=== PATIENT | female | born 1940 | race Caucasian/White ===

== ENCOUNTER 2023-04-30 16:26 | Emergency (ER) | payer MEDICARE, SELFPAY ==
[2023-04-30 16:41] VITALS: BP 144/68; PULSE 56; RESP 16; TEMP 36.9; O2SAT 100; BMI 20.8
--- NOTE | 2023-04-30 16:41 | XR_ITS ---
The [address] [address] Patient Name: ALANNAH SERVIN MRN: [id number] date: 1940 Sex: F Assigned Patient Location: ER Current Patient Location: ER Accession/Order Number: [id number] Exam Date: 04/30/2023 17:00 Report Date: 04/30/2023 18:10 At the request of: JAD TRAN Procedure: XR knee LT 2V IMAGES REVIEWED: XR knee LT 2V COMPARISON: None available. CLINICAL INDICATION: pain FINDINGS/IMPRESSION: 1. Advanced tricompartmental osteoarthritis of the left knee. 2. No radiographic evidence of acute osseous abnormality. No significant joint effusion. 3. Osteopenia. Electronically authenticated by: SUSANA TEJADA Date: 04/30/2023 18:10
--- NOTE | 2023-04-30 16:52 | US_ITS ---
The [place] [id number] Patient Name: ALANNAH SERVIN MRN: [id number] date: 1940 Sex: F Assigned Patient Location: ER Current Patient Location: ER Accession/Order Number: [id number] Exam Date: 04/30/2023 17:17 Report Date: 04/30/2023 18:14 At the request of: MARIELA WRIGHT Procedure: US venous doppler LE LT EXAM: US venous doppler LE LT HISTORY: rule out DVT COMPARISON: None. TECHNIQUE: Evaluation of the deep veins of the left lower extremity was performed utilizing B-mode, color flow and spectral analysis. FINDINGS: The visualized vessels comprising the deep venous systems from the common femoral vein through the calf veins demonstrate appropriate compressibility, spontaneous color Doppler flow, and augmentation of flow on spectral Doppler with distal compression. Additional findings: None. IMPRESSION: No sonographic evidence of deep venous thrombosis of the left lower extremity. Electronically authenticated by: AYESHA MURDOCK Date: 04/30/2023 18:14
--- NOTE | 2023-04-30 16:54 | ED_ITS ---
HPI - General Adult General Chief complaint: Altered Mental Status Stated complaint: CONFUSION Time Seen by Provider: 04/30/23 16:31 Source: family Mode of arrival: Wheelchair Limitations: altered mental status History of Present Illness HPI narrative: patient is a 82-year-old female who is presenting to the hospital with chief complaint of dehydration, agitation, leg pain. Patient has had a recent left hip surgery. Patient currently coming from nursing facility at the [facility]. Patient complaining of some mild left calf pain. Patient has been complaining of knee pain. Patient had a unwitnessed fall 1.5 weeks ago. Patient currently has no headache or neck pain. Patient is on Lovenox. Patient has no chest pain or shortness of breath. No bowel pain, nausea vomiting. Patient looks well, but there is been concern for nursing staff and family about agitation, dehydration, confusion and probable dehydration. Related Data Home Medications Medication Instructions Recorded Confirmed donepezil 10 mg tablet 10 mg PO DAILY 04/30/23 04/30/23 enoxaparin 40 mg/0.4 mL 40 mg subcut Q24H 04/30/23 04/30/23 subcutaneous syringe levothyroxine 150 mcg tablet 150 mcg PO DAILY 04/30/23 04/30/23 wruesd-nbaozkik-jrvmypn 1 cap PO DAILY 04/30/23 04/30/23 12,000-38,000-60,000 unit capsule,delayed rel (Creon) metoprolol succinate 50 mg 50 mg PO DAILY 04/30/23 04/30/23 tablet,extended release 24 hr oxybutynin chloride 10 mg 10 mg PO DAILY 04/30/23 04/30/23 tablet,extended release 24 hr paroxetine HCl 10 mg tablet 10 mg PO DAILY 04/30/23 04/30/23 Allergies Allergy/AdvReac Type Severity Reaction Status Date / Time Sulfa (Sulfonamide Allergy Severe Hives Verified 04/30/23 16:38 Antibiotics) metoclopramide [From Reglan] AdvReac Severe termors Verified 04/30/23 16:38 Review of Systems ROS Narrative All systems are negative except as noted/marked. All systems reviewed and otherwise negative. PFSH PFS Social History Smoking status: Never smoker Exam Narrative Exam Narrative: Nurses note and vital signs reviewed and patient is not hypoxic. General: The patient appears well and in no apparent distress. Patient is resting comfortably on cart. Patient is not toxic, lethargic, or listless Skin: Warm, dry, no pallor noted. There is no rash noted. No petechiae, purpura. Head: Normocephalic, atraumatic Eye: Normal conjunctiva, no drainage, EOMI. PERRL Ears, Nose, Mouth, and Throat: oral mucosa is slightly dry lips, tongue is moist,. Nares patent. Mouth without vesicles. poor dentition, chronic, no acute intraoral pathology or infection. Cardiovascular: Regular Rate and Rhythm, no murmur, gallop, rub Respiratory: Patient is in no distress, no accessory muscle use, lungs are clear to auscultation, no wheezing, rales or rhonchi Back: non-tender, no CVA tenderness bilaterally to percussion. No CT LS midline pain GI: soft, no tenderness to palpation, no masses appreciated. No rebound, guarding, or rigidity noted. No flank pain bilateral, No distention Musculoskeletal: Patient has full range of motion of all of the extremities, no motor, sensory, or focal neurological deficits. patient states that she's having pain to the left calf and left posterior knee, but during palpation, she has no pain to bilateral posterior calves, popliteal fossa, or posterior thighs. Neurological: A&O x2, Confused to time, this is normal baseline, normal speech Psychiatric: Cooperative Constitutional Vital Signs - 24 hr 04/30/23 16:41 Temperature 98.4 F Pulse Rate [Monitor] 56 L Respiratory Rate 16 Blood Pressure [Right Arm] 144/68 H Pulse Oximetry 100 Course Vital Signs Vital signs: Vital Signs Temperature 98.4 F 04/30/23 16:41 Pulse Rate 56 L 04/30/23 16:41 Respiratory Rate 16 04/30/23 16:41 Blood Pressure 144/68 H 04/30/23 16:41 Pulse Oximetry 100 04/30/23 16:41 Temperature 98.4 F 04/30/23 16:41 Pulse Rate 56 L 04/30/23 16:41 Respiratory Rate 16 04/30/23 16:41 Blood Pressure 144/68 H 04/30/23 16:41 Pulse Oximetry 100 04/30/23 16:41 Medical Decision Making MDM Narrative Medical decision making narrative: Patient's calcium level is slightly low. Patient has been given 2 L of IV fluuid to help with hydration. Patient has no evidence of infection. No other significant LOC slight abnormality, patient's sodium and chloride are slightly low. Patient ultrasound shows no deep vein thrombosis. Patient's multiple x-rays show no acute fracture, chest x-ray shows no obvious signs of pneumonia. Patient will be sent back to nursing facility. Patient's daughter has been at bedside, Shira Pedro. She agrees with the 2 L of IV fluid and discharge and no indication for admission at this time. Lab Data Lab results reviewed: Yes I reviewed the patient's lab results Lab results narrative: Patient has chronic anemia. Patient's sodium and chloride and calcium was slightly low. Patient received 2 L of IV fluid. Labs: Lab Results 04/30/23 04/30/23 Range/Units 16:55 17:55 WBC 4.4 (4.0-11.0) 10^3/uL RBC 3.03 L (4.20-5.40) 10^6/uL Hgb 9.6 L (12.0-16.0) g/dL Hct 30.3 L (36.0-48.0) % MCV 100.0 H (81.0-99.0) fL MCH 31.7 (26.7-34.0) pg MCHC 31.7 (29.9-35.2) g/dL RDW 13.6 (11.0-15.0) % Plt Count 337 (150-450) 10^3/uL MPV 10.0 (9.5-13.5) fL Neut % (Auto) 56.0 (43.0-75.0) % Lymph % (Auto) 31.3 (20.5-60.0) % [place] % (Auto) 10.4 (1.7-12.0) % Eos % (Auto) 1.6 (0.9-7.0) % Baso % (Auto) 0.2 (0.2-2.0) % Neut # (Auto) 2.5 (1.4-6.5) 10^3/uL Lymph # (Auto) 1.4 (1.2-3.8) 10^3/uL [place] # (Auto) 0.5 (0.3-0.8) 10^3/uL Eos # (Auto) 0.1 (0.0-0.7) 10^3/uL Baso # (Auto) 0.0 (0.0-0.1) 10^3/uL Abs Immat Gran (auto) 0.02 (0.00-0.03) 10^3/uL Imm/Tot Granulo (auto) 0.5 (0.0-0.5) % Sodium 133 L (136-145) mmol/L Potassium 3.8 (3.5-5.1) mmol/L Chloride 96 L (98-107) mmol/L Carbon Dioxide 26.2 (21.0-32.0) mmol/L Anion Gap 14.6 BUN 16.0 (7.0-18.0) mg/dL Creatinine 0.76 (0.55-1.02) mg/dL Est GFR ( Amer) >60 (>=60) Est GFR (Non-Af Amer) >60 (>=60) BUN/Creatinine Ratio 21.1 Glucose 92 (74-106) mg/dL Calcium 8.2 L (8.5-10.1) mg/dL Magnesium 2.0 (1.8-2.4) mg/dL Total Bilirubin 0.2 (0.2-1.0) mg/dL AST 21 (15-37) U/L ALT 15 (14-59) U/L Alkaline Phosphatase 112 (46-116) U/L Total Creatine Kinase 41 (26-192) U/L Total Protein 7.0 (6.4-8.2) g/dL Albumin 3.2 L (3.4-5.0) g/dL Globulin 3.8 g/dL Albumin/Globulin Ratio 0.8 TSH 1.455 (0.358-3.740) uIU/mL Urine Color Lt. yellow (YELLOW) Urine Clarity Slightly cloudy A (CLEAR) Urine pH 7.0 (5.0-9.0) Ur Specific [place] <=1.005 A (1.005-1.025) Urine Protein Negative (NEG/TRACE) mg/dL Urine Glucose (UA) Negative (NEGATIVE) mg/dL Urine Ketones Negative (NEGATIVE) mg/dL Urine Occult Blood Negative (NEGATIVE) Urine Nitrite Negative (NEGATIVE) Urine Bilirubin Negative (NEGATIVE) Urine Urobilinogen 0.2 (0.2-1.0) EU/dL Ur Leukocyte Esterase Small A (NEGATIVE) Urine RBC None seen (0-2) #/HPF Urine WBC 2-5 A (NONE SEEN) #/HPF Ur Squamous Epith Cells Few A (NONE/RARE) #/LPF Urine Crystals None seen (None Seen) #/HPF Urine Bacteria None seen (NONE SEEN) #/HPF Urine Casts None seen (NONE SEEN) #/LPF Urine Mucus None seen (NONE SEEN) Ur Culture Indicated? Already ordered Discharge Plan Discharge Chief Complaint: Altered Mental Status Clinical Impression: Pain of left calf, Confusion, Agitation, Dehydration, mild, Hypocalcemia Patient Disposition: Home, Self-Care Condition: Fair Prescriptions / Home Meds: No Action donepezil 10 mg tablet 10 mg PO DAILY enoxaparin 40 mg/0.4 mL syringe 40 mg subcut Q24H levothyroxine 150 mcg tablet 150 mcg PO DAILY Creon 12,000-38,000 -60,000 unit capsule,delayed release(DR/EC) 1 cap PO DAILY metoprolol succinate 50 mg tablet extended release 24 hr 50 mg PO DAILY oxybutynin chloride 10 mg tablet extended release 24hr 10 mg PO DAILY paroxetine HCl 10 mg tablet 10 mg PO DAILY Instructions: Dehydration (ED), Leg Pain (ED) Additional Instructions: Increase fluids, continue multivitamins or calcium supplements. Stand Alone Forms: Portal Instructions Referrals: LEAH JAIN [Primary Care Provider] - 1 week
--- NOTE | 2023-04-30 17:00 | XR_ITS ---
The [address] [address] Patient Name: ALANNAH SERVIN MRN: [id number] date: 1940 Sex: F Assigned Patient Location: ER Current Patient Location: ER Accession/Order Number: [id number] Exam Date: 04/30/2023 17:00 Report Date: 04/30/2023 18:15 At the request of: JAD TRAN Procedure: XR femur RT 2V IMAGES REVIEWED: XR femur RT 2V COMPARISON: 06/08/2022. CLINICAL INDICATION: pain FINDINGS/IMPRESSION: No radiographic evidence of acute osseous abnormality of the right femur. Chronic right distal femoral fracture transfixed by intact appearing hardware and demonstrating interval healing compared to the most recent prior from 06/08/2022. Appears completely healed on the frontal view, however on the lateral view the fracture healing is questionably slightly incomplete with questionable persistent small curvilinear lucency and slightly angulated cortical step-off. Patient is severely osteopenic. Right hip arthroplasty without evidence of complication. 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 Advanced tricompartmental degenerative changes of the right knee again seen. No significant right suprapatellar effusion. Electronically authenticated by: SUSANA TEJADA Date: 04/30/2023 18:15
[2023-04-30] MEDS: 0.9 % SODIUM CHLORIDE 1,000 ML 1000 ML IV ×2 (17:02→19:50)
--- NOTE | 2023-04-30 17:07 | XR_ITS ---
The [address] [address] Patient Name: ALANNAH SERVIN MRN: [id number] date: 1940 Sex: F Assigned Patient Location: ER Current Patient Location: ER Accession/Order Number: [id number] Exam Date: 04/30/2023 17:00 Report Date: 04/30/2023 18:12 At the request of: JAD TRAN Procedure: XR chest 1V EXAM: XR chest 1V HISTORY: cough COMPARISON: None. TECHNIQUE: Chest X-ray AP, 1 view FINDINGS: Support devices: None. Lungs/pleura: No consolidation, effusion, or pneumothorax. Heart and mediastinum: Normal contours. Bones: No acute abnormality identified. Impression: No radiographic evidence of acute cardiopulmonary process. Electronically authenticated by: AYESHA MURDOCK Date: 04/30/2023 18:12
[2023-04-30 17:08] VITALS: PULSE 60
[2023-04-30 17:11] LABS: Basophils Percent Auto 0.2 % (0.2-2.0); Eosinophils Absolute Auto 0.1 10^3/uL (0.0-0.7); Eosinophils Percent Auto 1.6 % (0.9-7.0); Hematocrit 30.3 % (36.0-48.0); Hemoglobin 9.6 g/dL (12.0-16.0); Immature Granulocytes Abs Auto 0.02 10^3/uL (0.00-0.03); Immature Granulocytes Pct Auto 0.5 % (0.0-0.5); Lymphocytes Absolute Auto 1.4 10^3/uL (1.2-3.8); Lymphocytes Percent Auto 31.3 % (20.5-60.0); Mean Corpuscular HGB Conc 31.7 g/dL (29.9-35.2); Mean Corpuscular Hemoglobin 31.7 pg (26.7-34.0); Monocytes Absolute Auto 0.5 10^3/uL (0.3-0.8); Monocytes Percent Auto 10.4 % (1.7-12.0); Neutrophils Absolute Auto 2.5 10^3/uL (1.4-6.5); Platelet Count 337 10^3/uL (150-450); Red Blood Count 3.03 10^6/uL (4.20-5.40); Red Cell Distribution Width 13.6 % (11.0-15.0); White Blood Count 4.4 10^3/uL (4.0-11.0)
[2023-04-30 17:28] LABS: Creatine Kinase 41 U/L (26-192)
[2023-04-30 17:30] LABS: Alanine Aminotransferase 15 U/L (14-59); Albumin Globulin Ratio 0.8; Albumin Level 3.2 g/dL (3.4-5.0); Alkaline Phosphatase 112 U/L (46-116); Anion Gap 14.6; Aspartate Amino Transferase 21 U/L (15-37); BUN Creatinine Ratio 21.1; Bilirubin Total 0.2 mg/dL (0.2-1.0); Calcium 8.2 mg/dL (8.5-10.1); Carbon Dioxide 26.2 mmol/L (21.0-32.0); Chloride 96 mmol/L (98-107); Estimated GFR (African America >60 (>=60); Estimated GFR (Non-African Ame >60 (>=60); Globulin 3.8 g/dL; Glucose 92 mg/dL (74-106); Potassium 3.8 mmol/L (3.5-5.1); Sodium 133 mmol/L (136-145)
[2023-04-30 17:38] LABS: Thyroid Stimulating Hormone 1.455 uIU/mL (0.358-3.740)
[2023-04-30 18:04] LABS: Bilirubin Urine NEGATIVE (NEGATIVE); Blood Urine NEGATIVE (NEGATIVE); Color Urine LT. YELLOW (YELLOW); Glucose Urine UA NEGATIVE (NEGATIVE); Ketones Urine NEGATIVE (NEGATIVE); Leukocyte Esterase Urine SMALL (NEGATIVE); Nitrite Urine NEGATIVE (NEGATIVE); Protein Urine NEGATIVE (NEG/TRACE); Specific Gravity Urine <=1.005 (1.005-1.025); Urobilinogen Urine 0.2 EU/dL (0.2-1.0)
[2023-04-30 18:09] LABS: Clarity Urine SLIGHTLY CLOUDY (CLEAR)
[2023-04-30 18:10] LABS: Bacteria Urine NONE SEEN #/HPF (NONE SEEN); Crystals Seen? None Seen #/HPF (None Seen); Mucus Urine NONE SEEN (NONE SEEN); RBC Urine NONE SEEN #/HPF (0-2); Squamous Epithelial Cell Urine FEW #/LPF (NONE/RARE)
[2023-04-30 18:11] LABS: Cast Seen? NONE SEEN #/LPF (NONE SEEN); Urine Culture Indicated ALREADY ORDERED
[2023-04-30 21:02] VITALS: BP 155/68; PULSE 64; RESP 18; O2SAT 100
== END 2023-04-30 20:45 | disposition home or self-care (01) ==
PROVIDERS: Physician Assistant; Emergency Provider Emergency Medicine; PCP Family Medicine
DX: M79.662 Pain in left lower leg (principal); R45.1 Restlessness and agitation; R41.0 Disorientation, unspecified; E86.0 Dehydration; E87.6 Hypokalemia; Z79.899 Other long term (current) drug therapy
CPT/HCPCS: 36415; 71045; 73552; 73560; 80053; 81001; 82550; 83735; 84443; 85025; 87086; 93971; 99285

== ENCOUNTER 2023-07-23 18:45 | Emergency (ER) | payer MEDICARE, SELFPAY ==
[2023-07-23] VITALS (26 sets, daily range): BP systolic 138–165; BP diastolic 78–98; PULSE 43–78; RESP 10–30; TEMP 36.7; O2SAT 66–99; BMI 17.4
--- NOTE | 2023-07-23 18:55 | ECG_ITS ---
The 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
--- NOTE | 2023-07-23 19:00 | XR_ITS ---
The [address] [address] Patient Name: ALANNAH SERVIN MRN: [id number] date: 1940 Sex: F Assigned Patient Location: ER Current Patient Location: ER Accession/Order Number: [id number] Exam Date: 07/23/2023 19:55 Report Date: 07/23/2023 20:48 At the request of: LAURA HARRIS Procedure: XR chest 1V EXAM: XR chest 1V HISTORY: Weakness COMPARISON: 04/30/2023 TECHNIQUE: AP portable study FINDINGS: The lung hendrix are well-expanded and clear. The heart is within normal limits in size. Atherosclerotic aorta without visible aneurysm. Degenerative changes are noted at both shoulders. Bony structures are otherwise unremarkable. XR/XR chest 1V IMPRESSION: No evidence for acute cardiopulmonary disease. Electronically authenticated by: Mani QUIROS Date: 07/23/2023 20:48
--- NOTE | 2023-07-23 19:00 | XR_ITS ---
The [address] [address] Patient Name: ALANNAH SERVIN MRN: [id number] date: 1940 Sex: F Assigned Patient Location: ER Current Patient Location: ER Accession/Order Number: [id number] Exam Date: 07/23/2023 19:55 Report Date: 07/23/2023 20:52 At the request of: LAURA HARRIS Procedure: XR knee LT 4V EXAM: XR knee LT 4V REASON FOR EXAM: Female, 82 years, Left knee pain. TECHNIQUE: 4 views of the knee are performed. COMPARISON: 04/30/2023 FINDINGS: The bones are demineralized. No acute fracture is seen. There is severe narrowing of the lateral femorotibial compartment. There is moderate joint space narrowing within the medial femorotibial compartment. There is severe joint space narrowing at the patellofemoral joint. There is no joint effusion. The soft tissues are unremarkable. XR/XR knee LT 4V IMPRESSION: Osteopenia with severe degenerative changes. No acute fracture is seen. Electronically authenticated by: ROSANGELA PEOPLES Date: 07/23/2023 20:52
--- NOTE | 2023-07-23 19:01 | CT_ITS ---
The [address] [address] Patient Name: ALANNAH SERVIN MRN: [id number] date: 1940 Sex: F Assigned Patient Location: ER Current Patient Location: Accession/Order Number: [id number] Exam Date: 07/23/2023 19:55 Report Date: 07/23/2023 20:54 At the request of: LAURA HARRIS Procedure: CT head/brain wo con EXAM: CT head/brain wo con REASON FOR EXAM: Female, 82 years, Weakness. TECHNIQUE: Computed tomography of the head is performed in the axial projection from the base of the skull to the vertex. Sagittal and coronal reconstructed images are performed. Dose reduction techniques were achieved by using automated exposure control and/or adjustment of mA and/or KVP according to patient size and/or use of iterative reconstruction technique. COMPARISON: 03/28/2023. FINDINGS: Atherosclerotic vascular calcifications are seen. Normal calvarium. There is prominence to the ventricles and sulci consistent with chronic cerebral volume loss. There is diffuse low attenuation within the periventricular white matter, consistent with chronic small vessel ischemic changes. Normal basal ganglia. Normal brainstem. There is moderate cerebellar atrophy. There is no evidence for acute ischemia. There is no evidence for acute hemorrhage. The visualized paranasal sinuses are clear. CT/CT head/brain wo con IMPRESSION: Chronic involutional changes. No acute intracranial abnormality. Electronically authenticated by: ROSANGELA PEPOLES Date: 07/23/2023 20:54
--- NOTE | 2023-07-23 19:10 | ED_ITS ---
HPI - Weakness General Chief complaint: Weakness Stated complaint: PROGRESSIVE WEAKNESS 1500, INCONTINENCE Time Seen by Provider: 07/23/23 18:50 Source: family Mode of arrival: Wheelchair Limitations: no limitations History of Present Illness HPI Narrative: patient is an 82-year-old female with dementia who presents to the emergency department with her daughter for the evaluation of worsening weakness, occasional spastic movements and inability to ambulate. Daughter is the primary historian, she is a physician ophthalmic surgical assistant in this emergency department. She states that the patient is currently residing in a long-term care facility, she has been unable to ambulate and had progressive weakness. She was recently placed on Requip for the spastic movements. she recently completed a course of Keflex for suspected urinary tract infection. She has not had any fevers, upper respiratory symptoms, vomiting or diarrhea. She complains of left knee pain. She has not had any injuries. daughter states that she had similar spastic movements and stiffening of the joints several months ago which were thought to be due to her Reglan prescription and when the medication was discontinued she was found to have improvement. She has had worsening of the twitching movements and is beginning to have stiffening of the joints. Related Data Home Medications Medication Instructions Recorded Confirmed donepezil 10 mg tablet 10 mg PO DAILY 04/30/23 07/23/23 levothyroxine 150 mcg tablet 150 mcg PO DAILY 04/30/23 07/23/23 [id number] 1 cap PO DAILY 04/30/23 07/23/23 12,000-38,000-60,000 unit capsule,delayed rel (Creon) metoprolol succinate 50 mg 50 mg PO DAILY 04/30/23 07/23/23 tablet,extended release 24 hr oxybutynin chloride 10 mg 10 mg PO DAILY 04/30/23 07/23/23 tablet,extended release 24 hr paroxetine HCl 10 mg tablet 10 mg PO DAILY 04/30/23 07/23/23 ferrous sulfate 325 mg (65 mg 325 mg PO DAILY 07/23/23 07/23/23 iron) tablet,delayed release magnesium oxide 500 mg tablet 500 mg PO DAILY 07/23/23 07/23/23 paroxetine HCl 20 mg tablet 20 mg PO DAILY 07/23/23 07/23/23 ropinirole 0.5 mg tablet 0.5 mg PO DAILY 07/23/23 07/23/23 Allergies Allergy/AdvReac Type Severity Reaction Status Date / Time Sulfa (Sulfonamide Allergy Severe Hives Verified 04/30/23 16:38 Antibiotics) metoclopramide [From Reglan] AdvReac Severe termors Verified 04/30/23 16:38 Review of Systems ROS Constitutional Denies: fever or chills PFSH PFSH Social History Smoking status: Never smoker Exam Constitutional Vital Signs, click to edit/add: Last Vital Signs Temp 98.1 F 07/23/23 18:52 Pulse 53 L 07/23/23 20:50 Resp 17 07/23/23 20:50 BP 138/86 07/23/23 21:02 Pulse Ox 97 07/23/23 20:50 O2 Del Method Room Air 07/23/23 18:52 Course Vital Signs Vital signs: Vital Signs Blood Pressure 165/98 H 07/23/23 17:28 Temperature 98.1 F 07/23/23 18:52 Pulse Rate 53 L 07/23/23 20:50 Respiratory Rate 17 07/23/23 20:50 Blood Pressure 138/86 07/23/23 21:02 Pulse Oximetry 97 07/23/23 20:50 Oxygen Delivery Method Room Air 07/23/23 18:52 MDM - Weakness MDM Narrative Medical decision making narrative: patient treated with IV fluids, she declined medication for pain in the Emergency Room and rested comfortably although she was noted to have intermittent twitching and stiffening of her extremities. Lab studies are grossly unremarkable, urine specimen with 2-5 WBC, small leukocyte and no bacteria. EKG with no acute changes, CT of the brain, chest x-ray unremarkable and x-rays of the left knee showed degenerative joint changes with no acute process. as the patient is unable to ambulate, becoming progressively weaker with worsening neurologic symptoms we requested admission, hospitalist, . sister, stated that the patient should be transferred to a facility with neurology. 2109: Patient's daughter states that she was at [facility] when she had a suspected adverse reaction to Reglan and was evaluated by Dr. Olea for neurology at that time. She is comfortable transfer back to [facility] for further evaluation and treatment. Patient accepted by hospitalist @ 2125. Stable for transfer. Medical Records Attestation: I reviewed the patient's medical records. Lab Data Attestation: I reviewed the patient's lab results. Labs: Lab Results 07/23/23 Range/Units 19:30 WBC 9.2 (4.0-11.0) 10^3/uL RBC 4.06 L (4.20-5.40) 10^6/uL Hgb 12.4 (12.0-16.0) g/dL Hct 39.2 (36.0-48.0) % MCV 96.6 (81.0-99.0) fL MCH 30.5 (26.7-34.0) pg MCHC 31.6 (29.9-35.2) g/dL RDW 15.9 H (11.0-15.0) % Plt Count 257 (150-450) 10^3/uL MPV 10.2 (9.5-13.5) fL Neut % (Auto) 79.9 H (43.0-75.0) % Lymph % (Auto) 10.3 L (20.5-60.0) % [place] % (Auto) 6.7 (1.7-12.0) % Eos % (Auto) 2.6 (0.9-7.0) % Baso % (Auto) 0.2 (0.2-2.0) % Neut # (Auto) 7.3 H (1.4-6.5) 10^3/uL Lymph # (Auto) 1.0 L (1.2-3.8) 10^3/uL [place] # (Auto) 0.6 (0.3-0.8) 10^3/uL Eos # (Auto) 0.2 (0.0-0.7) 10^3/uL Baso # (Auto) 0.0 (0.0-0.1) 10^3/uL Abs Immat Gran (auto) 0.03 (0.00-0.03) 10^3/uL Imm/Tot Granulo (auto) 0.3 (0.0-0.5) % ESR 23 (<=30) mm/hr PT 9.9 (9.0-11.6) sec INR 0.93 Sodium 135 L (136-145) mmol/L Potassium 4.1 (3.5-5.1) mmol/L Chloride 103 (98-107) mmol/L Carbon Dioxide 27.1 (21.0-32.0) mmol/L Anion Gap 9.0 BUN 23.0 H (7.0-18.0) mg/dL Creatinine 1.05 H (0.55-1.02) mg/dL Est GFR ( Amer) >60 (>=60) Est GFR (Non-Af Amer) 50 L (>=60) BUN/Creatinine Ratio 21.9 Glucose 127 H (74-106) mg/dL Lactate 1.8 (0.4-2.0) mmol/L Calcium 8.2 L (8.5-10.1) mg/dL Phosphorus 4.0 (2.6-4.7) mg/dL Magnesium 2.0 (1.8-2.4) mg/dL Total Bilirubin 0.3 (0.2-1.0) mg/dL AST 35 (15-37) U/L ALT 41 (14-59) U/L Alkaline Phosphatase 121 H (46-116) U/L Troponin I High Sens 6.4 (4.0-51.3) pg/mL C-Reactive Protein <1.0 (<=1.0) mg/dL Total Protein 7.3 (6.4-8.2) g/dL Albumin 3.4 (3.4-5.0) g/dL Globulin 3.9 g/dL Albumin/Globulin Ratio 0.9 TSH 2.276 (0.358-3.740) uIU/mL Urine Color Lt. yellow (YELLOW) Urine Clarity Clear (CLEAR) Urine pH 7.5 (5.0-9.0) Ur Specific [place] 1.010 (1.005-1.025) Urine Protein Negative (NEG/TRACE) mg/dL Urine Glucose (UA) Negative (NEGATIVE) mg/dL Urine Ketones Negative (NEGATIVE) mg/dL Urine Occult Blood Trace-i (NEGATIVE) Urine Nitrite Negative (NEGATIVE) Urine Bilirubin Negative (NEGATIVE) Urine Urobilinogen 0.2 (0.2-1.0) EU/dL Ur Leukocyte Esterase Small A (NEGATIVE) Urine RBC 0-2 (0-2) #/HPF Urine WBC 2-5 A (NONE SEEN) #/HPF Ur Squamous Epith Cells Few A (NONE/RARE) #/LPF Urine Crystals None seen (None Seen) #/HPF Urine Bacteria None seen (NONE SEEN) #/HPF Urine Casts None seen (NONE SEEN) #/LPF Urine Starch Rare Urine Mucus None seen (NONE SEEN) Ur Culture Indicated? No Imaging Data Chest x-ray: Attestation: I have reviewed the pertinent imaging results. Radiologist's impression: Procedure: XR chest 1V EXAM: XR chest 1V HISTORY: Weakness COMPARISON: 04/30/2023 TECHNIQUE: AP portable study FINDINGS: The lung hendrix are well-expanded and clear. The heart is within normal limits in size. Atherosclerotic aorta without visible aneurysm. Degenerative changes are noted at both shoulders. Bony structures are otherwise unremarkable. IMPRESSION: No evidence for acute cardiopulmonary disease. Electronically authenticated by: Mani QUIROS Date: 07/23/2023 20:48 CT scan - head: Attestation: I have reviewed the pertinent imaging results. Radiologist's impression: Procedure: CT head/brain wo con EXAM: CT head/brain wo con REASON FOR EXAM: Female, 82 years, Weakness. TECHNIQUE: Computed tomography of the head is performed in the axial projection from the base of the skull to the vertex. Sagittal and coronal reconstructed images are performed. Dose reduction techniques were achieved by using automated exposure control and/or adjustment of mA and/or KVP according to patient size and/or use of iterative reconstruction technique. COMPARISON: 03/28/2023. FINDINGS: Atherosclerotic vascular calcifications are seen. Normal calvarium. There is prominence to the ventricles and sulci consistent with chronic cerebral volume loss. There is diffuse low attenuation within the periventricular white matter, consistent with chronic small vessel ischemic changes. Normal basal ganglia. Normal brainstem. There is moderate cerebellar atrophy. There is no evidence for acute ischemia. There is no evidence for acute hemorrhage. The visualized paranasal sinuses are clear. IMPRESSION: Chronic involutional changes. No acute intracranial abnormality. Electronically authenticated by: ROSANGELA PEOPLES Date: 07/23/2023 20:54 XR left knee: Attestation: I have reviewed the pertinent imaging results. Radiologist's impression: Procedure: XR knee LT 4V EXAM: XR knee LT 4V REASON FOR EXAM: Female, 82 years, Left knee pain. TECHNIQUE: 4 views of the knee are performed. COMPARISON: 04/30/2023 FINDINGS: The bones are demineralized. No acute fracture is seen. There is severe narrowing of the lateral femorotibial compartment. There is moderate joint space narrowing within the medial femorotibial compartment. There is severe joint space narrowing at the patellofemoral joint. There is no joint effusion. The soft tissues are unremarkable. IMPRESSION: Osteopenia with severe degenerative changes. No acute fracture is seen. Electronically authenticated by: ROSANGELA PEOPLES Date: 07/23/2023 20:52 ECG Data Attestation: I personally reviewed and interpreted this ECG as follows: (normal sinus rhythm at a rate of sixty, no acute ST elevation, no ectopy. EKG reviewed by attending physician) ECG interpretation date: 07/23/23 ECG interpretation time: 20:55 Discharge Plan Discharge Chief Complaint: Weakness Clinical Impression: Generalized weakness, Abnormal involuntary movements, Inability to walk Patient Disposition: [facility] Time of Disposition Decision: 21:25 Discharge Location: [facility] Condition: Good Prescriptions / Home Meds: No Action donepezil 10 mg tablet 10 mg PO DAILY levothyroxine 150 mcg tablet 150 mcg PO DAILY Creon 12,000-38,000 -60,000 unit capsule,delayed release(DR/EC) 1 cap PO DAILY metoprolol succinate 50 mg tablet extended release 24 hr 50 mg PO DAILY oxybutynin chloride 10 mg tablet extended release 24hr 10 mg PO DAILY paroxetine HCl 10 mg tablet 10 mg PO DAILY ferrous sulfate 325 mg (65 mg iron) tablet,delayed release (DR/EC) 325 mg PO DAILY ropinirole 0.5 mg tablet 0.5 mg PO DAILY Rx Instructions: hs magnesium oxide 500 mg tablet 500 mg PO DAILY paroxetine HCl 20 mg tablet 20 mg PO DAILY Stand Alone Forms: Portal Instructions Referrals: LEAH JAIN [Primary Care Provider] - 1 week
[2023-07-23] MEDS: 0.9 % SODIUM CHLORIDE 1,000 ML 1000 ML IV (19:30)
--- NOTE | 2023-07-23 19:40 | PC.NURSE ---
pt brought in because pt lives at an assisted living facility on [address]. around 3 pm today pt started developing weakness and having a difficult time ambulating as well as incontinence of urine. pt usually gets around with a walker. pt did fall while at facility and was caught but pt is c/o pain to left knee. pt carried from wheelchair to bed. pt straight cathed on arrival, pt tolerated catheterization well.
[2023-07-23 19:41] LABS: Basophils Percent Auto 0.2 % (0.2-2.0); Eosinophils Absolute Auto 0.2 10^3/uL (0.0-0.7); Eosinophils Percent Auto 2.6 % (0.9-7.0); Hematocrit 39.2 % (36.0-48.0); Hemoglobin 12.4 g/dL (12.0-16.0); Immature Granulocytes Abs Auto 0.03 10^3/uL (0.00-0.03); Immature Granulocytes Pct Auto 0.3 % (0.0-0.5); Lymphocytes Percent Auto 10.3 % (20.5-60.0); Mean Corpuscular HGB Conc 31.6 g/dL (29.9-35.2); Mean Corpuscular Hemoglobin 30.5 pg (26.7-34.0); Mean Corpuscular Volume 96.6 fL (81.0-99.0); Mean Platelet Volume 10.2 fL (9.5-13.5); Monocytes Absolute Auto 0.6 10^3/uL (0.3-0.8); Monocytes Percent Auto 6.7 % (1.7-12.0); Neutrophils Absolute Auto 7.3 10^3/uL (1.4-6.5); Neutrophils Percent Auto 79.9 % (43.0-75.0); Platelet Count 257 10^3/uL (150-450); Red Blood Count 4.06 10^6/uL (4.20-5.40); Red Cell Distribution Width 15.9 % (11.0-15.0); White Blood Count 9.2 10^3/uL (4.0-11.0)
[2023-07-23 19:42] LABS: Bilirubin Urine NEGATIVE (NEGATIVE); Blood Urine TRACE-I (NEGATIVE); Clarity Urine CLEAR (CLEAR); Color Urine LT. YELLOW (YELLOW); Glucose Urine UA NEGATIVE (NEGATIVE); Ketones Urine NEGATIVE (NEGATIVE); Leukocyte Esterase Urine SMALL (NEGATIVE); Nitrite Urine NEGATIVE (NEGATIVE); Protein Urine NEGATIVE (NEG/TRACE); Urobilinogen Urine 0.2 EU/dL (0.2-1.0); pH Urine 7.5 (5.0-9.0)
[2023-07-23 19:45] LABS: Urine Microscopic Indicated YES
[2023-07-23 19:46] LABS: Erythrocyte Sedimentation Rate 23 mm/hr (<=30)
[2023-07-23 19:50] LABS: Bacteria Urine NONE SEEN #/HPF (NONE SEEN); Cast Seen? NONE SEEN #/LPF (NONE SEEN); Crystals Seen? None Seen #/HPF (None Seen); Mucus Urine NONE SEEN (NONE SEEN); RBC Urine 0-2 #/HPF (0-2); Squamous Epithelial Cell Urine FEW #/LPF (NONE/RARE); Starch Urine RARE; Urine Culture Indicated NO
[2023-07-23 19:51] LABS: C Reactive Protein <1.0 mg/dL (<=1.0)
[2023-07-23 19:54] LABS: INR 0.93; Prothrombin Time 9.9 sec (9.0-11.6)
[2023-07-23 19:59] LABS: Lactate/Lactic Acid 1.8 mmol/L (0.4-2.0)
[2023-07-23 20:06] LABS: Alanine Aminotransferase 41 U/L (14-59); Albumin Globulin Ratio 0.9; Albumin Level 3.4 g/dL (3.4-5.0); Alkaline Phosphatase 121 U/L (46-116); Aspartate Amino Transferase 35 U/L (15-37); BUN Creatinine Ratio 21.9; Bilirubin Total 0.3 mg/dL (0.2-1.0); Calcium 8.2 mg/dL (8.5-10.1); Carbon Dioxide 27.1 mmol/L (21.0-32.0); Chloride 103 mmol/L (98-107); Estimated GFR (African America >60 (>=60); Estimated GFR (Non-African Ame 50 (>=60); Globulin 3.9 g/dL; Glucose 127 mg/dL (74-106); Potassium 4.1 mmol/L (3.5-5.1); Sodium 135 mmol/L (136-145); Thyroid Stimulating Hormone 2.276 uIU/mL (0.358-3.740); Total Protein 7.3 g/dL (6.4-8.2); Troponin I High Sensitivity 6.4 pg/mL (4.0-51.3)
== END 2023-07-23 23:24 | disposition short-term general hospital (02) ==
PROVIDERS: Physician Assistant; Emergency Provider Emergency Medicine; PCP Family Medicine
DX: R53.1 Weakness (principal); G25.9 Extrapyramidal and movement disorder, unspecified; R26.2 Difficulty in walking, not elsewhere classified; F03.90 Unspecified dementia, unspecified severity, without behavioral disturbance, psychotic disturbance, mood disturbance, and anxiety; Z79.899 Other long term (current) drug therapy; Z79.890 Hormone replacement therapy
CPT/HCPCS: 36415; 70450; 71045; 73564; 80053; 81001; 83605; 83735; 84100; 84443; 84484; 85025; 85610; 85652; 86140; 93005; 99285

== ENCOUNTER 2023-08-16 16:32 | Outpatient (REF) | payer MEDICARE, SELFPAY ==
[2023-08-16 16:47] LABS: Basophils Percent Auto 0.6 % (0.2-2.0); Eosinophils Absolute Auto 0.2 10^3/uL (0.0-0.7); Eosinophils Percent Auto 3.1 % (0.9-7.0); Hematocrit 33.8 % (36.0-48.0); Hemoglobin 10.9 g/dL (12.0-16.0); Immature Granulocytes Abs Auto 0.01 10^3/uL (0.00-0.03); Immature Granulocytes Pct Auto 0.2 % (0.0-0.5); Lymphocytes Absolute Auto 1.5 10^3/uL (1.2-3.8); Lymphocytes Percent Auto 30.9 % (20.5-60.0); Mean Corpuscular HGB Conc 32.2 g/dL (29.9-35.2); Mean Corpuscular Hemoglobin 31.1 pg (26.7-34.0); Mean Corpuscular Volume 96.6 fL (81.0-99.0); Mean Platelet Volume 10.7 fL (9.5-13.5); Monocytes Absolute Auto 0.6 10^3/uL (0.3-0.8); Monocytes Percent Auto 11.3 % (1.7-12.0); Neutrophils Absolute Auto 2.6 10^3/uL (1.4-6.5); Neutrophils Percent Auto 53.9 % (43.0-75.0); Platelet Count 282 10^3/uL (150-450); Red Cell Distribution Width 14.8 % (11.0-15.0); White Blood Count 4.9 10^3/uL (4.0-11.0)
[2023-08-16 16:50] LABS: Anion Gap 11.3; BUN Creatinine Ratio 28.1; Calcium 8.2 mg/dL (8.5-10.1); Carbon Dioxide 27.2 mmol/L (21.0-32.0); Chloride 104 mmol/L (98-107); Estimated GFR (African America >60 (>=60); Estimated GFR (Non-African Ame >60 (>=60); Glucose 84 mg/dL (74-106); Potassium 4.5 mmol/L (3.5-5.1); Sodium 138 mmol/L (136-145)
[2023-08-16 16:54] LABS: Percent Iron Saturation 15.1 %
== END 2023-08-16 16:33 | disposition home or self-care (01) ==
LOC: LAB 16:32
PROVIDERS: PCP Family Medicine; Visit Provider Family Medicine
DX: E61.1 Iron deficiency (principal)
CPT/HCPCS: 36415; 80048; 82728; 83540; 83550; 85025

== ENCOUNTER 2023-09-19 11:06 | Emergency (ER) | payer MEDICARE, SELFPAY ==
[2023-09-19 11:09] VITALS: BP 153/67; PULSE 59; RESP 16; TEMP 36.7; O2SAT 100; BMI 18.5
--- NOTE | 2023-09-19 11:29 | XR_ITS ---
The [address] [address] Patient Name: ALANNAH SERVIN MRN: [id number] date: 1940 Sex: F Assigned Patient Location: ED.MAIN Current Patient Location: ER Accession/Order Number: [id number] Exam Date: 09/19/2023 12:00 Report Date: 09/19/2023 13:05 At the request of: MITALI SANCHEZ Procedure: XR femur LT 2V EXAM: XR femur LT 2V, XR knee LT 3V, XR hip LT 2V w/ pelvis HISTORY: fall COMPARISON: Left hip radiograph 03/28/2023. FINDINGS: Left hip: Bilateral hip arthroplasties. No evidence of joint dislocation. No periprosthetic fracture. Lucency and cortical step-off of the right inferior pubic ramus, similar to prior exam. Advanced lower lumbar degenerative changes. Bones are demineralized. Left femur: As above. No evidence of fracture or dislocation. Bones are demineralized. Left knee: Tricompartmental osteophyte formation. Small joint effusion. Subchondral sclerosis involving the lateral tibiofemoral compartment. No evidence of fracture or dislocation. XR/XR femur LT 2V IMPRESSION: No acute findings of the left hip/femur. Small left knee joint effusion. No acute osseous nonvisualization Electronically authenticated by: TIMUR CHAKRABORTY Date: 09/19/2023 13:05
--- NOTE | 2023-09-19 11:29 | XR_ITS ---
The [address] [address] Patient Name: ALANNAH SERVIN MRN: [id number] date: 1940 Sex: F Assigned Patient Location: ER Current Patient Location: ER Accession/Order Number: [id number] Exam Date: 09/19/2023 12:00 Report Date: 09/19/2023 13:05 At the request of: MITALI SANCHEZ Procedure: XR hip LT 2V w/ pelvis EXAM: XR femur LT 2V, XR knee LT 3V, XR hip LT 2V w/ pelvis HISTORY: fall COMPARISON: Left hip radiograph 03/28/2023. FINDINGS: Left hip: Bilateral hip arthroplasties. No evidence of joint dislocation. No periprosthetic fracture. Lucency and cortical step-off of the right inferior pubic ramus, similar to prior exam. Advanced lower lumbar degenerative changes. Bones are demineralized. Left femur: As above. No evidence of fracture or dislocation. Bones are demineralized. Left knee: Tricompartmental osteophyte formation. Small joint effusion. Subchondral sclerosis involving the lateral tibiofemoral compartment. No evidence of fracture or dislocation. XR/XR hip LT 2V w/ pelvis IMPRESSION: No acute findings of the left hip/femur. Small left knee joint effusion. No acute osseous nonvisualization Electronically authenticated by: TIMUR CHAKRABORTY Date: 09/19/2023 13:05
--- NOTE | 2023-09-19 11:29 | XR_ITS ---
The [address] [address] Patient Name: ALANNAH SERVIN MRN: [id number] date: 1940 Sex: F Assigned Patient Location: ED.MAIN Current Patient Location: Accession/Order Number: [id number] Exam Date: 09/19/2023 12:00 Report Date: 09/19/2023 13:05 At the request of: MITALI SANCHEZ Procedure: XR knee LT 3V EXAM: XR femur LT 2V, XR knee LT 3V, XR hip LT 2V w/ pelvis HISTORY: fall COMPARISON: Left hip radiograph 03/28/2023. FINDINGS: Left hip: Bilateral hip arthroplasties. No evidence of joint dislocation. No periprosthetic fracture. Lucency and cortical step-off of the right inferior pubic ramus, similar to prior exam. Advanced lower lumbar degenerative changes. Bones are demineralized. Left femur: As above. No evidence of fracture or dislocation. Bones are demineralized. Left knee: Tricompartmental osteophyte formation. Small joint effusion. Subchondral sclerosis involving the lateral tibiofemoral compartment. No evidence of fracture or dislocation. XR/XR knee LT 3V IMPRESSION: No acute findings of the left hip/femur. Small left knee joint effusion. No acute osseous nonvisualization Electronically authenticated by: TIMUR CHAKRABORTY Date: 09/19/2023 13:05
--- NOTE | 2023-09-19 11:58 | CT_ITS ---
The [address] [address] Patient Name: ALANNAH SERVIN MRN: [id number] date: 1940 Sex: F Assigned Patient Location: ER Current Patient Location: ER Accession/Order Number: [id number] Exam Date: 09/19/2023 12:02 Report Date: 09/19/2023 13:09 At the request of: MITALI SANCHEZ Procedure: CT lumbar spine wo con EXAM: CT lumbar spine wo con HISTORY: fall COMPARISON: CT abdomen and pelvis 10/04/2019. TECHNIQUE: CT lumbar spine without contrast. Multiplanar reformats obtained. FINDINGS: Bones are demineralized. No evidence of acute fracture or traumatic malalignment. Moderate to severe multilevel disc degeneration, endplate osteophytes, endplate cystic changes, sclerosis, and moderate to severe multilevel and bilateral facet arthropathy. Spinal canal is grossly patent. Moderate right-sided L4-L5 neural foraminal stenosis. Otherwise neural foramen are grossly patent. Simple right-sided renal cyst. Simple left-sided renal cyst. Colonic diverticulosis. Mild scattered atherosclerotic calcification. Common bile duct dilation similar prior exam. CT/CT lumbar spine wo con IMPRESSION: No acute findings. Severe lumbar spondylosis. Electronically authenticated by: TIMUR CHAKRBAORTY Date: 09/19/2023 13:09
[2023-09-19] MEDS: HYDROCODONE/ACET 5-325 MG TABLET 1 TAB PO (12:44)
[2023-09-19 12:45] LABS: Anion Gap 13.1
[2023-09-19 13:03] LABS: Basophils Percent Auto 0.1 % (0.2-2.0); Eosinophils Absolute Auto 0.1 10^3/uL (0.0-0.7); Eosinophils Percent Auto 1.3 % (0.9-7.0); Hemoglobin 11.6 g/dL (12.0-16.0); Immature Granulocytes Abs Auto 0.02 10^3/uL (0.00-0.03); Immature Granulocytes Pct Auto 0.2 % (0.0-0.5); Lymphocytes Percent Auto 11.8 % (20.5-60.0); Mean Corpuscular HGB Conc 33.1 g/dL (29.9-35.2); Mean Corpuscular Hemoglobin 32.2 pg (26.7-34.0); Mean Corpuscular Volume 97.2 fL (81.0-99.0); Monocytes Absolute Auto 0.4 10^3/uL (0.3-0.8); Monocytes Percent Auto 4.9 % (1.7-12.0); Neutrophils Percent Auto 81.7 % (43.0-75.0); Platelet Count 283 10^3/uL (150-450); Red Cell Distribution Width 14.3 % (11.0-15.0); White Blood Count 8.5 10^3/uL (4.0-11.0)
[2023-09-19 13:08] LABS: BUN Creatinine Ratio 22.8; Calcium 8.6 mg/dL (8.5-10.1); Chloride 102 mmol/L (98-107); Estimated GFR (African America >60 (>=60); Estimated GFR (Non-African Ame >60 (>=60); Glucose 97 mg/dL (74-106); Potassium 5.1 mmol/L (3.5-5.1); Sodium 136 mmol/L (136-145)
--- NOTE | 2023-09-19 14:21 | ED_ITS ---
HPI - Fall General Chief Complaint: Fall Stated Complaint: FALL LT KNEE INJURY Time Seen by Provider: 09/19/23 11:08 Source: family Mode of arrival: Wheelchair Limitations: altered mental status and physical limitation History of Present Illness HPI Narrative: 82-year-old female presents for pain in her left leg which seems to be the result of a fall from last night. She is unable to provide a good history and th e exact mechanism of fall is uncertain. She seems to be complaining of pain mostly in the left thigh area going into the left knee. 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 Most of the history is obtained from her doctor who is a PA. Related Data Home Medications Medication Instructions Recorded Confirmed donepezil 10 mg tablet 10 mg PO DAILY 04/30/23 07/23/23 levothyroxine 150 mcg tablet 150 mcg PO DAILY 04/30/23 07/23/23 [id number] 1 cap PO DAILY 04/30/23 07/23/23 12,000-38,000-60,000 unit capsule,delayed rel (Creon) metoprolol succinate 50 mg 50 mg PO DAILY 04/30/23 07/23/23 tablet,extended release 24 hr oxybutynin chloride 10 mg 10 mg PO DAILY 04/30/23 07/23/23 tablet,extended release 24 hr paroxetine HCl 10 mg tablet 10 mg PO DAILY 04/30/23 07/23/23 ferrous sulfate 325 mg (65 mg 325 mg PO DAILY 07/23/23 07/23/23 iron) tablet,delayed release magnesium oxide 500 mg tablet 500 mg PO DAILY 07/23/23 07/23/23 paroxetine HCl 20 mg tablet 20 mg PO DAILY 07/23/23 07/23/23 ropinirole 0.5 mg tablet 0.5 mg PO DAILY 07/23/23 07/23/23 Allergies Allergy/AdvReac Type Severity Reaction Status Date / Time Sulfa (Sulfonamide Allergy Severe Hives Verified 09/19/23 11:16 Antibiotics) metoclopramide [From Reglan] AdvReac Severe termors Verified 09/19/23 11:16 Review of Systems ROS Narrative not obtainable, age PFSH PFSH Social History Smoking status: Never smoker Exam Narrative Exam Narrative: Nurses note and vital signs reviewed and patient is not hypoxic. General: The patient appears well and in no apparent distress. Patient is resting comfortably on cart. Skin: Warm, dry, no pallor noted. There is no rash noted. Head: Normocephalic, atraumatic Eye: Normal conjunctiva, no drainage, EOMI. PERRL Ears, Nose, Mouth, and Throat: oral mucosa is moist. Nares patent. Mouth without vesicles. Cardiovascular: Regular Rate and Rhythm Respiratory: Patient is in no distress, no accessory muscle use, lungs are clear to auscultation, no wheezing, rales or rhonchi GI: Normal bowel sounds, no tenderness to palpation, no masses appreciated. No rebound, guarding, or rigidity noted. Musculoskeletal: right hip and knee have full range of motion. She has no palpable tenderness in the left foot or left ankle. She seems to have some mild tenderness to palpation of the left knee and left thigh and left hip. There is no obvious deformity or swelling. Neurological: awake and alert Psychiatric: Cooperative Constitutional Vital Signs, click to edit/add: Last Vital Signs Temp 98.0 F 09/19/23 11:09 Pulse 59 L 09/19/23 11:09 Resp 16 09/19/23 11:09 BP 153/67 H 09/19/23 11:09 Pulse Ox 100 09/19/23 11:09 O2 Del Method Room Air 09/19/23 11:09 Course Vital Signs Vital signs: Vital Signs Temperature 98.0 F 09/19/23 11:09 Pulse Rate 59 L 09/19/23 11:09 Respiratory Rate 16 09/19/23 11:09 Blood Pressure 153/67 H 09/19/23 11:09 Pulse Oximetry 100 09/19/23 11:09 Oxygen Delivery Method Room Air 09/19/23 11:09 Temperature 98.0 F 09/19/23 11:09 Pulse Rate 59 L 09/19/23 11:09 Respiratory Rate 16 09/19/23 11:09 Blood Pressure 153/67 H 09/19/23 11:09 Pulse Oximetry 100 09/19/23 11:09 Oxygen Delivery Method Room Air 09/19/23 11:09 MDM - Fall MDM Narrative Medical decision making narrative: aall radiographs are negative and she is able to be discharged home. Differential Diagnosis Differential diagnosis: Likely other (left knee fracture, left femur fracture, lumbar fracture, hip prosthesis issue) Lab Data Attestation: I reviewed the patient's lab results. Labs: Lab Results 09/19/23 Range/Units 12:52 WBC 8.5 (4.0-11.0) 10^3/uL RBC 3.60 L (4.20-5.40) 10^6/uL Hgb 11.6 L (12.0-16.0) g/dL Hct 35.0 L (36.0-48.0) % MCV 97.2 (81.0-99.0) fL MCH 32.2 (26.7-34.0) pg MCHC 33.1 (29.9-35.2) g/dL RDW 14.3 (11.0-15.0) % Plt Count 283 (150-450) 10^3/uL MPV 11.0 (9.5-13.5) fL Neut % (Auto) 81.7 H (43.0-75.0) % Lymph % (Auto) 11.8 L (20.5-60.0) % [place] % (Auto) 4.9 (1.7-12.0) % Eos % (Auto) 1.3 (0.9-7.0) % Baso % (Auto) 0.1 L (0.2-2.0) % Neut # (Auto) 7.0 H (1.4-6.5) 10^3/uL Lymph # (Auto) 1.0 L (1.2-3.8) 10^3/uL [place] # (Auto) 0.4 (0.3-0.8) 10^3/uL Eos # (Auto) 0.1 (0.0-0.7) 10^3/uL Baso # (Auto) 0.0 (0.0-0.1) 10^3/uL Abs Immat Gran (auto) 0.02 (0.00-0.03) 10^3/uL Imm/Tot Granulo (auto) 0.2 (0.0-0.5) % Sodium 136 (136-145) mmol/L Potassium 5.1 (3.5-5.1) mmol/L Chloride 102 (98-107) mmol/L Carbon Dioxide 26.0 (21.0-32.0) mmol/L Anion Gap 13.1 BUN 18.0 (7.0-18.0) mg/dL Creatinine 0.79 (0.55-1.02) mg/dL Est GFR ( Amer) >60 (>=60) Est GFR (Non-Af Amer) >60 (>=60) BUN/Creatinine Ratio 22.8 Glucose 97 (74-106) mg/dL Calcium 8.6 (8.5-10.1) mg/dL Imaging Data lumbar CT, left hip, left femur, left knee: Radiologist's impression: all show no acute findings Discharge Plan Discharge Chief Complaint: Fall Clinical Impression: Fall Patient Disposition: Home, Self-Care Time of Disposition Decision: 14:20 Condition: Good Mode of Transportation: Private Vehicle Prescriptions / Home Meds: No Action donepezil 10 mg tablet 10 mg PO DAILY levothyroxine 150 mcg tablet 150 mcg PO DAILY Creon 12,000-38,000 -60,000 unit capsule,delayed release(DR/EC) 1 cap PO DAILY metoprolol succinate 50 mg tablet extended release 24 hr 50 mg PO DAILY oxybutynin chloride 10 mg tablet extended release 24hr 10 mg PO DAILY paroxetine HCl 10 mg tablet 10 mg PO DAILY ferrous sulfate 325 mg (65 mg iron) tablet,delayed release (DR/EC) 325 mg PO DAILY ropinirole 0.5 mg tablet 0.5 mg PO DAILY Rx Instructions: hs magnesium oxide 500 mg tablet 500 mg PO DAILY paroxetine HCl 20 mg tablet 20 mg PO DAILY Instructions: Fall Prevention for Older Adults (ED), Fall Prevention (ED) Stand Alone Forms: Portal Instructions Referrals: LEAH JAIN [Primary Care Provider] - 1 week
== END 2023-09-19 14:00 | disposition home or self-care (01) ==
PROVIDERS: Emergency Provider Emergency Medicine; PCP Family Medicine
DX: Z04.3 Encounter for examination and observation following other accident (principal); W19.XXXA Unspecified fall, initial encounter; Z79.899 Other long term (current) drug therapy; Z79.890 Hormone replacement therapy; Z96.642 Presence of left artificial hip joint
CPT/HCPCS: 36415; 72131; 73502; 73552; 73562; 80048; 85025; 99284

== ENCOUNTER 2024-05-18 08:08 | Observation (INO) | payer MEDICARE, SELFPAY ==
[2024-05-18] VITALS (11 sets, daily range): BP systolic 153–189; BP diastolic 68–109; PULSE 60–83; TEMP 36.6–36.7; O2SAT 4–98; BMI 17.4; BMI 18.3
--- NOTE | 2024-05-18 08:32 | ED.GENADUL1 ---
HPI HPI - General Adult General Chief complaint: Seizure Stated complaint: SEIZURE Time Seen by Provider: 05/18/24 08:20 Source: family Mode of arrival: ambulance Limitations: no limitations History of Present Illness HPI narrative: This patient [facility] after having a loss of consciousness/seizure type of event. It was not directly witnessed but there was a suggestion that she was in the restroom and had a jerking type of movements and collapse forward to the floor. They returned her to her wheelchair. She has had similar events in the past that were worked up by neurology in [facility] and it was not felt that they were seizure type activities but rather spastic movements of the limbs. She did not undergo EEG testing. This patient limited historian due to advancing dementia. Her daughter provides most of the history. She is still not back to her normal level of awareness after arriving here in the ER. Her glucose is normal and her blood pressure is not hypotensive. She is not known to have any cardiac arrhythmia. Her she is not known to have any carotid disease. She has had CT imaging in the past that was normal so these events that she is having are somewhat undiagnosed Related Data Home Medications ?Medication ?Instructions ?Recorded ?Confirmed donepezil 10 mg tablet 10 mg PO DAILY 04/30/23 05/18/24 levothyroxine 150 mcg tablet 150 mcg PO DAILY 04/30/23 05/18/24 qwqldj-hcgoaaxu-benbujn 1 cap PO DAILY 04/30/23 05/18/24 12,000-38,000-60,000 unit capsule,delayed rel (Creon) metoprolol succinate 50 mg 50 mg PO DAILY 04/30/23 05/18/24 tablet,extended release 24 hr ferrous sulfate 325 mg (65 mg 325 mg PO DAILY 07/23/23 05/18/24 iron) tablet,delayed release paroxetine HCl 20 mg tablet 20 mg PO DAILY 07/23/23 05/18/24 ropinirole 0.5 mg tablet 0.5 mg PO DAILY 07/23/23 07/23/23 alprazolam 0.25 mg tablet 0.25 mg PO BID PRN anxiety 05/18/24 05/18/24 ropinirole 0.25 mg tablet 0.25 mg PO TID 05/18/24 05/18/24 Allergies Allergy/AdvReac Type Severity Reaction Status Date / Time Sulfa (Sulfonamide Allergy Severe Hives Verified 09/19/23 11:16 Antibiotics) metoclopramide [From Reglan] AdvReac Severe termors Verified 09/19/23 11:16 Opioid HPI Opioid Management Most Recent Opioid Data: Last ED Pain Assessment 05/18/24 09:23 [facility] Social History Smoking status: Never smoker Exam Narrative Exam Narrative: Bernadette is awake. She is here with family. She does not seem to be back at her baseline neurological level of awareness. She does however follow all simple commands. She denies any headache pain or discomfort. Her speech is not slurred. Her vital signs are noted. Show twelve-lead monitor her blood glucose was normal. She did not have her meds yet this morning her blood pressure is modestly elevated. ENT examination shows no evidence of tongue lacerations there is superficial minor abrasion to the lip area. Dentition is in adequate but not good repair. There is no soft tissue swelling in the oral cavity. She has no carotid bruits. She has no tenderness to palpation of her cervical spine area. There is no contusions abrasions or injury noted to her calvarium. Passive range of motion testing of her limbs it does not reproduce any pain or discomfort. I do not see any acute bruises contusions or injuries to the limbs or the extremities at all. Lower lungs were clear heart sounds are regular. She has no abdominal pain to palpation. She moves the extremities but is weak. Her daughter states that she is now capable of bearing weight but it is very tenuous and usually needs assistance. She did not have any evidence of urinary incontinence. Skin and integument were normal with no petechiae purpura or evidence of pallor. Laboratory studies and CT imaging will be done. Constitutional Vital Signs, click to edit/add: Last Vital Signs Temp 98 F 05/18/24 08:11 Pulse 83 05/18/24 08:11 Resp 20 05/18/24 08:11 BP 179/109 H 05/18/24 08:11 Pulse Ox 95 05/18/24 09:23 O2 Del Method Room Air 05/18/24 09:23 Course Vital Signs Vital signs: Vital Signs Temperature 98 F 05/18/24 08:11 Pulse Rate 83 05/18/24 08:11 Respiratory Rate 20 05/18/24 08:11 Blood Pressure 179/109 H 05/18/24 08:11 Pulse Oximetry 4 L 05/18/24 08:11 Oxygen Delivery Method Room Air 05/18/24 08:11 Temperature 98 F 05/18/24 08:11 Pulse Rate 83 05/18/24 08:11 Respiratory Rate 20 05/18/24 08:11 Blood Pressure 179/109 H 05/18/24 08:11 Pulse Oximetry 95 05/18/24 09:23 Oxygen Delivery Method Room Air 05/18/24 09:23 Medical Decision Making MDM Narrative Medical decision making narrative: Patient has a history of possible early parkinsonism or spastic movement disorder but seizure disorder has not been totally excluded with any type of diagnostic studies. With her prolonged postictal state here we will get CT imaging and lab and admit her for further evaluation of this. This was agreeable to the family members and the on-call primary care doctor. Preliminary review of the CT by myself did not show any acute changes but there is some age-related atrophy. Lab Data Labs: Lab Results 05/18/24 Range/Units 08:28 WBC 7.3 (4.0-11.0) 10^3/uL RBC 4.25 (4.20-5.40) 10^6/uL Hgb 13.0 (12.0-16.0) g/dL Hct 40.8 (36.0-48.0) % MCV 96.0 (81.0-99.0) fL MCH 30.6 (26.7-34.0) pg MCHC 31.9 (29.9-35.2) g/dL RDW 14.6 (11.0-15.0) % Plt Count 256 (150-450) 10^3/uL MPV 10.5 (9.5-13.5) fL Neut % (Auto) 63.1 (43.0-75.0) % Lymph % (Auto) 26.4 (20.5-60.0) % [place] % (Auto) 7.0 (1.7-12.0) % Eos % (Auto) 2.9 (0.9-7.0) % Baso % (Auto) 0.3 (0.2-2.0) % Neut # (Auto) 4.6 (1.4-6.5) 10^3/uL Lymph # (Auto) 1.9 (1.2-3.8) 10^3/uL [place] # (Auto) 0.5 (0.3-0.8) 10^3/uL Eos # (Auto) 0.2 (0.0-0.7) 10^3/uL Baso # (Auto) 0.0 (0.0-0.1) 10^3/uL Abs Immat Gran (auto) 0.02 (0.00-0.03) 10^3/uL Imm/Tot Granulo (auto) 0.3 (0.0-0.5) % Discharge Plan Discharge Chief Complaint: Seizure Clinical Impression: Acute alteration in mental status Patient Disposition: Admitted as Observation Time of Disposition Decision: 09:40 Prescriptions / Home Meds: No Action ropinirole 0.25 mg tablet 0.25 mg PO TID alprazolam 0.25 mg tablet 0.25 mg PO BID PRN (Reason: anxiety) donepezil 10 mg tablet 10 mg PO DAILY levothyroxine 150 mcg tablet 150 mcg PO DAILY Creon 12,000-38,000 -60,000 unit capsule,delayed release(DR/EC) 1 cap PO DAILY metoprolol succinate 50 mg tablet extended release 24 hr 50 mg PO DAILY ferrous sulfate 325 mg (65 mg iron) tablet,delayed release (DR/EC) 325 mg PO DAILY ropinirole 0.5 mg tablet 0.5 mg PO DAILY Rx Instructions: hs paroxetine HCl 20 mg tablet 20 mg PO DAILY Print Language: Kuwaiti Referrals: LEAH JAIN [Primary Care Provider] - 1 week
--- NOTE | 2024-05-18 08:34 | ECG_ITS ---
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
[2024-05-18 08:40] LABS: Basophils Percent Auto 0.3 % (0.2-2.0); Eosinophils Absolute Auto 0.2 10^3/uL (0.0-0.7); Eosinophils Percent Auto 2.9 % (0.9-7.0); Hematocrit 40.8 % (36.0-48.0); Immature Granulocytes Abs Auto 0.02 10^3/uL (0.00-0.03); Immature Granulocytes Pct Auto 0.3 % (0.0-0.5); Lymphocytes Absolute Auto 1.9 10^3/uL (1.2-3.8); Lymphocytes Percent Auto 26.4 % (20.5-60.0); Mean Corpuscular HGB Conc 31.9 g/dL (29.9-35.2); Mean Corpuscular Hemoglobin 30.6 pg (26.7-34.0); Mean Platelet Volume 10.5 fL (9.5-13.5); Monocytes Absolute Auto 0.5 10^3/uL (0.3-0.8); Neutrophils Absolute Auto 4.6 10^3/uL (1.4-6.5); Neutrophils Percent Auto 63.1 % (43.0-75.0); Platelet Count 256 10^3/uL (150-450); Red Blood Count 4.25 10^6/uL (4.20-5.40); Red Cell Distribution Width 14.6 % (11.0-15.0); White Blood Count 7.3 10^3/uL (4.0-11.0)
[2024-05-18] MEDS: 0.9 % SODIUM CHLORIDE 1,000 ML 100 ML IV (08:53)
--- NOTE | 2024-05-18 09:18 | CT_ITS ---
The [address] [address] Patient Name: ALANNAH SERVIN MRN: [id number] date: 1940 Sex: F Assigned Patient Location: ER Current Patient Location: .[facility] Accession/Order Number: [id number] Exam Date: 05/18/2024 09:10 Report Date: 05/18/2024 09:48 At the request of: MADAI MONGE Procedure: CT head/brain wo con EXAM: CT head/brain without contrast HISTORY: Loss of consciousness/seizure. History thyroid cancer status post thyroidectomy. COMPARISON: Comparison made to head CT dated 07/23/2023. TECHNIQUE: Contiguous transaxial images were obtained from skull base to vertex without administration of intravenous contrast. Dose reduction: mA and/or kV are were adjusted by automated exposure control software based upon patients height and weight. FINDINGS: There is no focal scalp soft tissue swelling or acute calvarial fracture. The visualized globes and orbits are grossly normal. There is left sphenoid sinus mucoperiosteal thickening with extensive partial opacification of the left sphenoid sinus. Bilateral mastoid air cells are clear. The ventricles and sulci are prominent bilaterally. There is periventricular and deep subcortical white matter low attenuation consistent with small vessel ischemic disease. There is no intraparenchymal hemorrhage, extraaxial fluid collection, mass lesion, or acute large territory ischemia by noncontrast CT. There is intracranial atherosclerosis. CT/CT head/brain wo con IMPRESSION: 1. No acute intracranial hemorrhage or acute large territory ischemia by noncontrast CT. 2. Cerebral atrophy and chronic small vessel ischemic disease. 3. Left sphenoid sinus disease. If the patient has a focal neurologic deficit or there is clinical suspicion for acute cerebrovascular accident, brain MRI would be recommended for further evaluation. Electronically authenticated by: KATY SHARMA Date: 05/18/2024 09:48
--- NOTE | 2024-05-18 09:18 | XR_ITS ---
The [address] [address] Patient Name: ALANNAH SERVIN MRN: [id number] date: 1940 Sex: F Assigned Patient Location: ER Current Patient Location: ER Accession/Order Number: [id number] Exam Date: 05/18/2024 09:10 Report Date: 05/18/2024 09:30 At the request of: MADAI MONGE Procedure: XR chest 1V EXAM: XR chest 1V HISTORY: . Transient loss of consciousness . COMPARISON: 07/23/2023 TECHNIQUE: Single view of the chest. FINDINGS: Heart and vascularity are unremarkable. Lungs are free of focal infiltrates. EKG leads overlie the chest. Arthritic changes of the right shoulder are noted. XR/XR chest 1V Impression: No acute heart or lung disease identified. Electronically authenticated by: LEONELA BRAUN Date: 05/18/2024 09:30
--- NOTE | 2024-05-18 10:01 | P.HP_ITS ---
HPI H&P: HPI History of Present Illness Chief complaint: SEIZURE Narrative: Patient with acute change in mental status. He was previously, she has had a movement disorder lately as well. Suspect possible seizure with postictal state. Patient was admitted for workup and treatment of same. I saw patient in the ER, patient was resting company in bed she definite a movement disorder approximate every 30 to 40 seconds. But no other specific complaints. She seemed to be waking up more as the morning went along. Opioid HPI Opioid Management Most Recent Pain and Opioid Data: Last Pain Assessment 05/18/24 19:00 Last ED Pain Assessment 05/18/24 09:23 Last ORT Total Score 0 05/18/24 11:20 Last ORT Risk Category Low Risk 05/18/24 11:20 Review of Systems ROS Status of ROS 10 or more systems reviewed and unremark able except as noted in history and below [facility] Medical History (Updated 05/18/24 @ 11:05 by Brandy Gamez) TIA (transient ischemic attack) ?G45.9 - Transient cerebral ischemic attack, unspecified (ICD-10) Muscle spasm ?M62.838 - Other muscle spasm (ICD-10) Dementia ?F03.90 - Unspecified dementia, unspecified severity, without behavioral disturbance, psychotic disturbance, mood disturbance, and anxiety (ICD-10) Fracture of right femur ?S72.91XA - Unspecified fracture of right femur, initial encounter for closed fracture (ICD-10) Thyroid cancer ?C73 - Malignant neoplasm of thyroid gland (ICD-10) Hypothyroidism ?E03.9 - Hypothyroidism, unspecified (ICD-10) Hypertension ?I10 - Essential (primary) hypertension (ICD-10) Surgical History (Updated 05/18/24 @ 11:04 by Brandy Gamez) History of right hip replacement ?Z96.641 - Presence of right artificial hip joint (ICD-10) Family History (Updated 05/18/24 @ 11:05 by Brandy Gamez) Father Family history of CHF (congestive heart failure) Family history of diabetes mellitus Family history of hypertension Family history of myocardial infarction Social History (Updated 05/18/24 @ 11:06 by Brandy Gamez) Within the past year, how often did you have a drink containing alcohol: never Score interpretation: A score less than 3 is consistent with normal alcohol consumption. Smoking status: Never smoker Non-prescribed substance use: denies use Previous occupational history: retired Highest level of school completed/degree received: Associate degree: occupational, technical, vocational program In a typical week, how many times do you talk on the telephone with family, friends, or neighbors: 3 or more times per week How often do you get together with friends or relatives: 3 or more times per week How often do you attend yazidism or taoist services: 1-3 times per year Do you belong to any clubs or organizations such as yazidism groups unions, [employer] or athletic groups, or school groups: no Little interest or pleasure in doing things: not at all Feeling down, depressed, or hopeless: not at all Feel stressed/tense/nervous/anxious/difficulty sleeping: not at all Meds Home Medications and Allergies Home Medications ?Medication ?Instructions ?Recorded ?Confirmed ?Type donepezil 10 mg tablet 10 mg PO .QHS 04/30/23 05/18/24 History levothyroxine 150 mcg tablet 150 mcg PO DAILY 04/30/23 05/18/24 History vachmh-uokgfsmn-fglvlzn 1 cap PO BIDWM 04/30/23 05/18/24 History 12,000-38,000-60,000 unit capsule,delayed rel (Creon) metoprolol succinate 50 mg 50 mg PO DAILY 04/30/23 05/18/24 History tablet,extended release 24 hr ferrous sulfate 325 mg (65 mg 325 mg PO .4X A WEEK 07/23/23 05/18/24 History iron) tablet,delayed release paroxetine HCl 20 mg tablet 20 mg PO DAILY 07/23/23 05/18/24 History ropinirole 0.5 mg tablet 0.5 mg PO .HS 07/23/23 05/18/24 History alprazolam 0.25 mg tablet 0.25 mg PO BID PRN anxiety 05/18/24 05/18/24 History loperamide 2 mg capsule 2 mg PO .3X A WEEK 05/18/24 05/18/24 History (Anti-Diarrheal (loperamide)) loperamide 2 mg capsule 2 mg PO BID@0800,1700 05/18/24 05/18/24 History (Anti-Diarrheal (loperamide)) mecobalamin (vitamin B12) 5,000 5,000 mcg PO DAILY 06/27/24 06/27/24 History mcg chewable tablet ropinirole 0.25 mg tablet 0.25 mg PO BID@0800,1700 05/18/24 05/18/24 History Allergies Allergy/AdvReac Type Severity Reaction Status Date / Time Sulfa (Sulfonamide Allergy Severe Hives Verified 09/19/23 11:16 Antibiotics) metoclopramide [From Reglan] AdvReac Severe termors Verified 09/19/23 11:16 Exam Constitutional Vital Signs, click to edit/add: Last Vital Signs Temp 98 F 05/18/24 08:11 Pulse 83 05/18/24 08:11 Resp 20 05/18/24 08:11 BP 179/109 H 05/18/24 08:11 Pulse Ox 95 05/18/24 09:23 O2 Del Method Room Air 05/18/24 09:23 Documenting provider has reviewed patient's vital signs: yes Common normals: no apparent distress Chest Common normals: inspection of chest normal Respiratory Common normals: normal respiratory effort and no retractions Cardio Common normals: regular rate and regular rhythm GI Common normals: Normal to inspection, nondistended, normoactive bowel sounds present Neuro Common normals: oriented x3, CN's II-XII intact bilaterally and moves all extremities (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 She does also have a movement disorder so we will see what telemetry neurology thinks about. Uncontrolled hypertension-Home medication, as needed hydralazine Generalized anxiety disorder-continue with home medications Hypothyroidism-had levels checked recently would not change anything at this point Movement disorder-plan from evaluation from teleneurology may consider increasing ropinirole dosing Admission status: Patient with acute alteration mental status but is slowly improving, more than 50% chance to be discharged home tomorrow, observation status
[2024-05-18 10:08] LABS: Alanine Aminotransferase 33 U/L (14-59); Albumin Globulin Ratio 0.7; Alkaline Phosphatase 147 U/L (46-116); Anion Gap 12.2; Aspartate Amino Transferase 28 U/L (15-37); BUN Creatinine Ratio 16.5; Bilirubin Total 0.6 mg/dL (0.2-1.0); Calcium 8.4 mg/dL (8.5-10.1); Carbon Dioxide 28.9 mmol/L (21.0-32.0); Chloride 103 mmol/L (98-107); Estimated GFR (African America >60 (>=60); Estimated GFR (Non-African Ame >60 (>=60); Globulin 4.4 g/dL; Glucose 97 mg/dL (74-106); Potassium 4.1 mmol/L (3.5-5.1); Sodium 140 mmol/L (136-145); Total Protein 7.4 g/dL (6.4-8.2)
[2024-05-18 10:18] LABS: Thyroid Stimulating Hormone 23.621 uIU/mL (0.358-3.740); Troponin I High Sensitivity 14.6 pg/mL (4.0-51.3)
[2024-05-18 10:19] LABS: Lactate/Lactic Acid 2.1 mmol/L (0.4-2.0)
[2024-05-18 10:45] LABS: Free T3 1.48 pg/mL (2.18-3.98); Phosphorus 3.8 mg/dL (2.6-4.7)
--- NOTE | 2024-05-18 12:03 | SWNOTE1 ---
Pt is from [facility].
--- NOTE | 2024-05-18 12:11 | SWNOTE1 ---
SW went to room to complete assessment, but pt is not oriented. SW to check back later to see if family is in room or call family later today.
[2024-05-18 13:47] LABS: Lactate/Lactic Acid 1.7 mmol/L (0.4-2.0)
[2024-05-18 13:52] LABS: Ammonia 12 umol/L (11-32)
--- NOTE | 2024-05-18 15:20 | SWNOTE1 ---
SW met with pt in room, pt was sleeping, daughter answered questions for assessment. Pt is living at [facility]. Pt was doing well there and used a walker to walk with assistance. Plan is for pt to return as long as she can ambulate with walker. Medicare Outpatient Observation Notice reviewed and discussed with patient's daughter. Pt's daughter verbalized understanding and signed the form. Original given to patient's daughter and copy placed in patient?s chart.
[2024-05-18] MEDS: ROPINIROLE HCL 0.25 MG TABLET 0.5 MG PO (21:45)
[2024-05-19] VITALS (9 sets, daily range): BP systolic 153–167; BP diastolic 71–85; PULSE 65–81; TEMP 36.9–37.1; O2SAT 92–96
--- NOTE | 2024-05-19 04:27 | PC.NURSE ---
Patients daughter was at bedside for most of night-went home to get some sleep. Stated that the patietn had a hard time taking her oral meds and is not at her baseline. Daughter wanted to remind the doctor that if patient is not at baseline again in a.m. and is not able to ambulate, then she cannot go back to [facility] where she came from. The daughter would like for the patient to stay in hospital for another day if she is not back to baseline so that she can talk to Kendra the social media marketer about hospice. Patient's daughter does not want patient to go to a half-way or to the [facility].
[2024-05-19 07:03] LABS: Basophils Percent Auto 0.2 % (0.2-2.0); Eosinophils Absolute Auto 0.1 10^3/uL (0.0-0.7); Eosinophils Percent Auto 0.9 % (0.9-7.0); Hematocrit 41.5 % (36.0-48.0); Hemoglobin 12.9 g/dL (12.0-16.0); Immature Granulocytes Abs Auto 0.04 10^3/uL (0.00-0.03); Immature Granulocytes Pct Auto 0.5 % (0.0-0.5); Mean Corpuscular HGB Conc 31.1 g/dL (29.9-35.2); Mean Corpuscular Hemoglobin 29.5 pg (26.7-34.0); Monocytes Absolute Auto 0.6 10^3/uL (0.3-0.8); Monocytes Percent Auto 6.5 % (1.7-12.0); Neutrophils Absolute Auto 6.9 10^3/uL (1.4-6.5); Neutrophils Percent Auto 79.9 % (43.0-75.0); Platelet Count 275 10^3/uL (150-450); Red Blood Count 4.37 10^6/uL (4.20-5.40); Red Cell Distribution Width 14.5 % (11.0-15.0); White Blood Count 8.7 10^3/uL (4.0-11.0)
[2024-05-19 07:16] LABS: Anion Gap 12.9; BUN Creatinine Ratio 12.5; Calcium 8.1 mg/dL (8.5-10.1); Carbon Dioxide 26.3 mmol/L (21.0-32.0); Chloride 101 mmol/L (98-107); Estimated GFR (African America >60 (>=60); Estimated GFR (Non-African Ame >60 (>=60); Glucose 99 mg/dL (74-106); Potassium 4.2 mmol/L (3.5-5.1); Sodium 136 mmol/L (136-145)
[2024-05-19] MEDS: LIOTHYRONINE SODIUM 5 MCG TABLET 10 MCG PO (08:55)
[2024-05-19] MEDS: ROPINIROLE HCL 0.25 MG TABLET PO ×2 (08:55→16:22)
[2024-05-19] MEDS: FOLIC ACID/VIT B6/VIT B12 TABLET 1 TAB PO (08:55)
[2024-05-19] MEDS: [UNRECOGNIZED DRUG - OTHER] 2 CAP PO ×2 (08:55→16:22)
[2024-05-19] MEDS: PAROXETINE HCL 20 MG TABLET PO (08:56)
[2024-05-19] MEDS: METOPROLOL SUCCINATE 50 MG TAB.ER.24H PO (08:56)
[2024-05-19] MEDS: FERROUS SULFATE 325 MG TABLET PO (08:56)
[2024-05-19] MEDS: LOPERAMIDE HCL 2 MG CAPSULE PO ×2 (08:57→16:23)
[2024-05-19 09:15] LABS: Bilirubin Urine NEGATIVE (NEGATIVE); Blood Urine TRACE-L (NEGATIVE); Clarity Urine CLEAR (CLEAR); Color Urine LT. YELLOW (YELLOW); Glucose Urine UA NEGATIVE (NEGATIVE); Ketones Urine NEGATIVE (NEGATIVE); Leukocyte Esterase Urine NEGATIVE (NEGATIVE); Nitrite Urine NEGATIVE (NEGATIVE); Protein Urine NEGATIVE (NEG/TRACE); Specific Gravity Urine 1.015 (1.005-1.025); Urobilinogen Urine 0.2 EU/dL (0.2-1.0)
[2024-05-19 09:32] LABS: Bacteria Urine TRACE #/HPF (NONE SEEN); Crystals Seen? None Seen #/HPF (None Seen); Mucus Urine NONE SEEN (NONE SEEN); RBC Urine 0-2 #/HPF (0-2); Squamous Epithelial Cell Urine RARE #/LPF (NONE/RARE); WBC Urine 0-2 #/HPF (NONE SEEN)
[2024-05-19 09:33] LABS: Cast Seen? NONE SEEN #/LPF (NONE SEEN); Urine Culture Indicated ALREADY ORDERED
--- NOTE | 2024-05-19 10:08 | P.PN_ITS ---
Progress Note: Subjective Subjective Interval history: Patient was somnolent yesterday but much more awake today. Appears to be back to her baseline. She has not been up and ambulating yet. Exam Constitutional Vital Signs, click to edit/add: Last Vital Signs Temp 98.5 F 05/19/24 07:51 Pulse 79 05/19/24 07:51 Resp 16 05/19/24 07:51 BP 167/84 H 05/19/24 07:51 Pulse Ox 92 L 05/19/24 07:51 O2 Del Method Room Air 05/19/24 07:51 Documenting provider has reviewed patient's vital signs: yes Common normals: no apparent distress Chest Common normals: inspection of chest normal Respiratory Common normals: normal respiratory effort and no retractions Cardio Common normals: regular rate and regular rhythm GI Common normals: Normal to inspection, nondistended, normoactive bowel sounds present Neuro Common normals: oriented x3, CN's II-XII intact bilaterally and moves all extremities (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 yellow (YELLOW) Urine Clarity Clear (CLEAR) Urine pH 8.0 (5.0-9.0) Ur Specific [place] 1.015 (1.005-1.025) Urine Protein Negative (NEG/TRACE) mg/dL Urine Glucose (UA) Negative (NEGATIVE) mg/dL Progress Note: A&P Assessment and Plan (1) Acute alteration in mental status: (2) Fall: (3) Generalized weakness: Plan Acute altered mental status-teleneurology visit, checking on MRI scan. Patient appears to be getting back to her baseline. Will have physical therapy work with her this morning. If she is ambulating safely, MRI scan shows no significant changes, she could possibly be referred back to her current living situation. Medications see list. Follow-up with PCP at discharge. Uncontrolled hypertension-currently stable Generalized anxiety disorder-continue with home medications Hypothyroidism-had levels checked recently would not change anything at this point Movement disorder-plan from evaluation from teleneurology may consider increasing ropinirole dosing Admission status: Patient with acute alteration mental status but is slowly improving, more than 50% chance to be discharged home tomorrow, observation sta tus-we will reevaluate later today if stable need to be changed to inpatient status as her medically necessary treatment will span 2 midnights. ? Urinary Catheter Management Urinary Catheter Management Urethral: Cath placed during this visit: no
--- NOTE | 2024-05-19 10:09 | MR_ITS ---
The [address] [address] Patient Name: ALANNAH SERVIN MRN: [id number] date: 1940 Sex: F Assigned Patient Location: [place] Current Patient Location: [place] Accession/Order Number: [id number] Exam Date: 05/19/2024 10:50 Report Date: 05/19/2024 13:00 At the request of: KAVITHA ROSARIO Procedure: MR head/brain wo con EXAM: MR head/brain wo con HISTORY: AMS COMPARISON: CT brain 05/18/2024 TECHNIQUE: MRI of the brain was performed without contrast. The exam is terminated early due to patient's inability to tolerate the exam. Axial DWI, FLAIR and sagittal T1 images are obtained. FINDINGS: Exam is distorted secondary to motion artifact. Findings are made within these confines. There is no restricted diffusion to suggest acute infarct. There is no midline shift, mass effect, or abnormal extraaxial fluid collections. The cortical sulci and ventricular system are enlarged, consistent with cerebral atrophy. Multiple nonspecific scattered foci of T2/FLAIR signal abnormality are identified in the subcortical and periventricular white matter, likely reflect chronic microvascular ischemic changes. The cerebellar tonsils are normal in position. The orbits are unremarkable. The paranasal sinuses show no air-fluid level. The mastoid air cells are clear. MR/MR head/brain wo con IMPRESSION: Limited examination. No acute intracranial abnormality. Moderate chronic microvascular ischemia and involutional changes. Electronically authenticated by: HILTON JETTU Date: 05/19/2024 13:00
--- NOTE | 2024-05-19 10:16 | PT.DAILY ---
Physical Therapy Daily Note PT Daily Note/Assess Start: 05/18/24 13:35 Freq: Status: Active Protocol: Document 05/19/24 08:55 BERNICE (Rec: 05/19/24 10:16 [id number] [id number]) Physical Therapy Daily Note/Assessment Time In/Time Out Time In 08:55 Time Out 09:22 Subjective Subjective More alert this morning. Answers simple questions. Agrees to get up to chair. Therapeutic Exercise Time Therapeutic Exercise Minutes (minutes) 4 Therapeutic Exercise Units 0 Therapeutic Exercise Treatment Therapeutic Exercise Treatment Attempted some seated exercises, patient able to follow command for each exercises x1 but unable to keep going, more cognitive vs physical ability. Therapeutic Activity Time Therapeutic Activity Minutes (minutes) 23 Therapeutic Activity Units 2 Therapeutic Activity Treatment Bed Mobility Ability Minimum Assist Chair Transfer Ability Minimum Assist Therapeutic Activity Comments Patient does well with simple commands. Min assist with supine to sit. Sits unsupported for 4-5 minutes with supervision. Sit to stand at RW CGA to very light min assist. Static stand at RW 2-3 minutes. Gait 5 steps from bed to chair using RW with min assist x1. Sit to stand from chair CGA. Total Physical Therapy Time Total Therapy Minutes 27 Total Physical Therapy Units 2 Summary Daily Note Summary Improved ability with bed mobility and transfers today. Does well when given time and instructed with simple commands. During seated exercises patient complains of GRACIA and zones out for 1-2 minutes then re-alerts. Nursing notified. Patient was with OT at end of PT session today.
[2024-05-19] MEDS: ACETAMINOPHEN 500 MG TABLET 1000 MG PO (10:19)
--- NOTE | 2024-05-19 12:17 | CM.NOTE ---
Rounds made with Dr. Marvin. Dr. Marvin reviewed test results and plan of care with Bernadette and Bernadette's daughter, Shira. Bernadette did not get up with PT this am. Dr. Marvin encouraged Bernadette to get up with PT to see how she does. Plan is get a brain MRI today. Discharge plans are currently dependent on MRI results and how Bernadette does with PT.
--- NOTE | 2024-05-19 13:29 | SWNOTE1 ---
JAMES spoke to pt's daughter, Shira. We are having physical therapy come back over and evaluate pt to see if she can ambulate, if she can, then pt will be dc back to [facility] today. If not it is possible for a hospice consult. JAMES to call and update Cele at [facility].
--- NOTE | 2024-05-19 13:38 | SWNOTE1 ---
JAMES called and updated Cele at [facility].
--- NOTE | 2024-05-19 16:58 | PC.NURSE ---
Teleneuro called to check on patient...instructed pt was discharged and waiting for ride home with daughter Shira, closer to 7 pm. Savanah ([employer] or PA) for neuro states that she will follow up with Shira per phone call to see if they want to follow up with [facility] neuro. Discharge note from Dr. Marvin does not mention follow up with neuro on discharge. Only phone number on chart was daughter Lila. This number given as contact number. Savanah states she will call Hazel to obtain sister Shira's cell number.
--- NOTE | 2024-05-22 12:03 | CM.DCFOLLOWU ---
Patient is from [facility].
== END 2024-05-19 18:22 | disposition home or self-care (01) ==
LOC: ER 09:40 → MS 10:52
PROVIDERS: Admitting Provider Family Medicine; Emergency Provider Emergency Medicine Emergency Medical Services; PCP Family Medicine; Visit Provider Family Medicine
DX: R41.82 Altered mental status, unspecified (principal); G25.9 Extrapyramidal and movement disorder, unspecified; I10 Essential (primary) hypertension; F41.1 Generalized anxiety disorder; E03.9 Hypothyroidism, unspecified; F03.90 Unspecified dementia, unspecified severity, without behavioral disturbance, psychotic disturbance, mood disturbance, and anxiety
CPT/HCPCS: 36415; 70450; 70551; 71045; 80048; 80053; 81001; 82140; 83605; 83735; 84100; 84436; 84443; 84481; 84484; 85025; 87040; 87086; 93005; 94761; 95816; 96360; 96361; 97116; 97162; 97165; 97530; 99285; G0378; Q3014

== ENCOUNTER 2024-06-13 13:23 | Outpatient (OUT) | payer MEDICARE, SELFPAY ==
--- NOTE | 2024-06-13 | XR_ITS ---
The [address] [address] Patient Name: ALANNAH SERVIN MRN: [id number] date: 1940 Sex: F Assigned Patient Location: Current Patient Location: Accession/Order Number: [id number] Exam Date: 06/13/2024 13:25 Report Date: 06/14/2024 07:22 At the request of: NICKOLAS MOISE Procedure: XR foot RT min 3V PROCEDURE: XR foot RT min 3V COMPARISON: None. HISTORY: RIGHT FOOT PAIN FINDINGS: BONES:No acute fracture or dislocation. Persistent flexion deformities of the toes limits their evaluation. Mild plantar enthesopathic spurring of the calcaneus. Mild degenerative changes with joint space narrowing and marginal osteophyte formation. Exaggerated plantar arch SOFT TISSUES:Negative. No visible soft tissue swelling. EFFUSION:None visible. OTHER: Negative. XR/XR foot RT min 3V IMPRESSION: Degenerative changes Electronically authenticated by: LEONELA WASHINGTON Date: 06/14/2024 07:22
== END 2024-06-13 13:24 | disposition home or self-care (01) ==
LOC: EC 13:23
PROVIDERS: PCP Family Medicine; Visit Provider Podiatrist Foot & Ankle Surgery
DX: M79.671 Pain in right foot (principal)
CPT/HCPCS: 73630

== ENCOUNTER 2024-09-08 11:55 | Outpatient (REF) | payer MEDICARE, SELFPAY ==
[2024-09-08 12:37] LABS: Free T4 1.23 ng/dL (0.76-1.46)
[2024-09-08 14:18] LABS: Thyroid Stimulating Hormone 1.307 uIU/mL (0.358-3.740)
== END 2024-09-08 11:56 | disposition home or self-care (01) ==
LOC: LAB 11:55
PROVIDERS: PCP Family Medicine; Visit Provider Family Medicine
DX: E03.9 Hypothyroidism, unspecified (principal)
CPT/HCPCS: 36415; 84439; 84443

== ENCOUNTER 2025-01-14 08:27 | Observation (INO) | payer MEDICARE, SELFPAY ==
[2025-01-14] VITALS (57 sets, daily range): BP systolic 102–190; BP diastolic 52–112; PULSE 55–93; TEMP 36.5–36.8; O2SAT 89–100; BMI 20.8; BMI 21.3
--- NOTE | 2025-01-14 08:32 | ECG_ITS ---
The [facility] Test Date: 2025-01-14 Pat Name: ALANNAH SERVIN Department: Room: - Gender: Female Stenciler: : 1940 Requested By: Order Number: [id number] Reading MD: DAT MOTT Measurements Intervals [place] Rate: 61 P: 90 IN: 188 QRS: 69 QRSD: 84 T: 72 QT: 432 QTc: 436 Interpretive Statements 1100 Sinus rhythm 9110 normal ECG Compared to ECG 05/18/2024 08:14:48 No significant changes Electronically Signed On 01-14-2025 15:25:33 EST by DAT MOTT
[2025-01-14 08:48] LABS: Glucometer 85 mg/dL (74-106)
--- NOTE | 2025-01-14 08:48 | ED.SEIZURE1 ---
HPI - Seizure General Chief Complaint: Seizure Stated Complaint: unresponsive Time Seen by Provider: 01/14/25 08:27 Mode of arrival: ambulance History of Present Illness HPI Narrative: cc = seizure-like activity Pt resides at a local extended care facility. She was on the commode this morning, with staff present, when she suddenly lost consciousness, was twitching and then shaking all over . She continued to have what the staff described as seizures for between 5 and 7 minutes, they reported. By the time EMS arrived, the activity had stopped and she was post-ictal. Glucose 136 per EMS. Pt had stable vitals in route. On arrival she would open eyes to verbal stimuli but not talk. Daughter arrived to ED same time as the pt. Daughter gave history - pt has dementia and is a poor historian at baseline. Pt had a similar episode last April - she was again on the commode and passed out with twitching or shaking although it did not appear to have an associated post-ictal period. She was admitted, had negative brain MRI and negative brain CT, unremarkable labs and Neuro Teleconsult, no med changes, seems to be attributed to combo of her dementia plus movement disorder plus anxiety - possible vasovagal episode. However he PCP started her on Depakote 125mg BID in May 2024 for seizure prevention ?, as well as helping with the movement disorder, which have ceased since then, per daughter Related Data Home Medications ?Medication ?Instructions ?Recorded ?Confirmed levothyroxine 150 mcg tablet 175 mcg PO DAILY 04/30/23 01/14/25 [id number]-[id number] 1 cap PO BIDWM 04/30/23 01/14/25 12,000-38,000-60,000 unit capsule,delayed rel (Creon) metoprolol succinate 50 mg 50 mg PO DAILY 04/30/23 01/14/25 tablet,extended release 24 hr paroxetine HCl 20 mg tablet 20 mg PO DAILY 07/23/23 01/14/25 ropinirole 0.5 mg tablet 0.5 mg PO .HS 07/23/23 01/14/25 loperamide 2 mg capsule 2 mg PO .3X A WEEK 05/18/24 01/14/25 (Anti-Diarrheal (loperamide)) ropinirole 0.25 mg tablet 0.25 mg PO BID@0800,1700 05/18/24 01/14/25 Saccharomyces boulardii 250 cap PO 01/14/25 mg-inulin 300 mg capsule (FlorastorSelect Gut Boost) acetaminophen 500 mg capsule 1,000 mg PO Q4H PRN fever or pain 01/14/25 01/14/25 diphenhydramine 25 1 tab PO DAILY 01/14/25 01/14/25 mg-acetaminophen 500 mg tablet (Acetadryl) donepezil 10 mg tablet (Aricept) 10 mg PO DAILY 01/14/25 01/14/25 zinc 50 mg capsule 50 mg PO DAILY 01/14/25 01/14/25 Previous Rx's ?Medication ?Instructions ?Recorded lacosamide 100 mg tablet (Vimpat) 100 mg PO BID #60 tabs 01/14/25 lacosamide 100 mg tablet (Vimpat) 100 mg PO BID #60 tabs 01/14/25 Allergies Allergy/AdvReac Type Severity Reaction Status Date / Time Sulfa (Sulfonamide Allergy Severe Hives Verified 09/19/23 11:16 Antibiotics) metoclopramide (From Reglan) AdvReac Severe termors Verified 09/19/23 11:16 [facility] Medical History (Updated 01/14/25 @ 09:34 by Steven Tejada) Acute alteration in mental status ?R41.82 - Altered mental status, unspecified (ICD-10) Fall ?W19.XXXA - Unspecified fall, initial encounter (ICD-10) Generalized weakness ?R53.1 - Weakness (ICD-10) TIA (transient ischemic attack) ?G45.9 - Transient cerebral ischemic attack, unspecified (ICD-10) Muscle spasm ?M62.838 - Other muscle spasm (ICD-10) Dementia ?F03.90 - Unspecified dementia, unspecified severity, without behavioral disturbance, psychotic disturbance, mood disturbance, and anxiety (ICD-10) Fracture of right femur ?S72.91XA - Unspecified fracture of right femur, initial encounter for closed fracture (ICD-10) Thyroid cancer ?C73 - Malignant neoplasm of thyroid gland (ICD-10) Hypothyroidism ?E03.9 - Hypothyroidism, unspecified (ICD-10) Hypertension ?I10 - Essential (primary) hypertension (ICD-10) Surgical History (Updated 05/18/24 @ 11:04 by Brandy Gamez) History of right hip replacement ?Z96.641 - Presence of right artificial hip joint (ICD-10) Family History (Updated 05/18/24 @ 11:05 by Brandy Gamez) Father Family history of CHF (congestive heart failure) Family history of diabetes mellitus Family history of hypertension Family history of myocardial infarction Social History (Updated 05/18/24 @ 11:06 by Brandy Gamez) Within the past year, how often did you have a drink containing alcohol: never Score interpretation: A score less than 3 is consistent with normal alcohol consumption. Smoking status: Never smoker Non-prescribed substance use: denies use Previous occupational history: retired Highest level of school completed/degree received: Associate degree: occupational, technical, vocational program In a typical week, how many times do you talk on the telephone with family, friends, or neighbors: 3 or more times per week How often do you get together with friends or relatives: 3 or more times per week How often do you attend buddhism or rastafari services: 1-3 times per year Do you belong to any clubs or organizations such as buddhism groups unions, fraternal or athletic groups, or school groups: no Little interest or pleasure in doing things: not at all Feeling down, depressed, or hopeless: not at all Feel stressed/tense/nervous/anxious/difficulty sleeping: not at all Exam Narrative Exam Narrative: Nurses notes and vital signs reviewed and patient is not hypoxic. afebrile General: Well-appearing and in no apparent distress. Still post-ictal. Skin: Warm, dry, no pallor noted. No rash. Head: Normocephalic, atraumatic. Neck: Supple, non-tender. Eye: Pupils are equal, round and EOMI. No scleral icterus. Ears, Nose, Mouth, and Throat: Oral mucosa is moist. No oral injury. Cardiovascular: Regular Rate and Rhythm without murmur, gallop or rub. Respiratory: No accessory muscle use or respiratory distress. Lungs are clear to auscultation, no wheezing, rales or rhonchi Back: No midline thoracic or lumbar vertebral tenderness. No CVA tenderness Musculoskeletal: normal ROM, no calf or popliteal tenderness, no lower extremity edema/swelling GI: Abdomen is soft, non-distended. Normal bowel sounds. No tenderness to palpation. No rebound, guarding, or rigidity noted. Neurological: Opens eyes to verbal stimuli. Does not answer when asked her name. No cranial nerve dysfunction observed in limited response to exam. Moves all extremities spontaneously. Sensation intact. Psychiatric: Post-ictal. Constitutional Vital Signs, click to edit/add: Last Vital Signs Temp 98 F 01/14/25 08:45 Pulse 65 01/14/25 09:40 Resp 19 01/14/25 09:40 BP 156/85 H 01/14/25 09:31 Pulse Ox 100 01/14/25 09:40 O2 Del Method Room Air 01/14/25 08:59 Course Vital Signs Vital signs: Vital Signs Blood Pressure 177/78 H 01/14/25 08:29 Temperature 98 F 01/14/25 08:45 Pulse Rate 65 01/14/25 09:40 Respiratory Rate 19 01/14/25 09:40 Blood Pressure 156/85 H 01/14/25 09:31 Pulse Oximetry 100 01/14/25 09:40 Oxygen Delivery Method Room Air 01/14/25 08:59 MDM - Seizure MDM Narrative Medical decision making narrative: Seizure precautions initiated. Patient was placed on dramatic agent and EKG obtained. Chpop-hm-kiug glucose was 85. Blood drawn and sent for evaluation. She was given a liter of normal saline IV fluid. She was also given 1 mg of Ativan IV. Head CT did not reveal any ICH or tumor - radiologist reported ischemic changes and atrophy. Lab tests are fairly unremarkable. Patient had normal white blood cell count and unremarkable CBC. Her BUN was slightly elevated 25, consistent with the history that the daughter gave the patient not eating or drinking much over the last 5 to 7 days. T3 was minimally elevated at 1.5, low level of normal is 2.18. T4 was normal. I spoke to the daughter and she will reach out to Dr. Khan's neck, the patient's primary care physician, to discuss potential increase in her Levothyroid dose. Her valproic acid level was 16.1, which is low, consistent with her lower daily dose I paged and spoke with the neurologist on-call at [facility]. Dr. Soriano and I discussed this patient's case. I let him know the patient had been receiving Depakote 125 mg p.o. twice daily for prevention of seizure and potential treatment of her movement disorder. He indicated to me that was a subthreshold dose for the Depakote and that if we truly wanted to treat this as a seizure and start seizure prevention, he recommended starting Keppra or Vimpat. We discussed the patient's history of dementia and he felt that the Vimpat would be a better option for her. We do not have Vimpat IV at [facility], therefore she was given Keppra IV 500 mg and then, after confirming with the patient's daughter, I sent a prescription for Vimpat 100 mg p.o. twice daily to be started once the patient returns back to extended-care facility. I called and spoke with the on-call metalizing machine operator, Dr. Dickerson. After discussion of this patient's history, current status as well as plan for not just medications to be given during hospitalization but also medications to be taken on an outpatient basis, he agreed to admit this patient to the ICU on observation basis with the plan that she will continue to receive either Keppra or, oral Vimpat, if available, and then be discharged home, assuming that she returns to baseline mentation and ability to perform activities of daily living. She has an appointment already scheduled for March 20 at 2:30 PM at the neuro surgical center in [facility]. I also already sent the prescription for Vimpat, as detailed above. Medical Records Attestation: I reviewed the patient's medical records. Medical records narrative: I reviewed the patient's visit from April 2024 as well as her admission. This is summarized in the HPI Lab Data Attestation: I reviewed the patient's lab results. Labs: Lab Results 01/14/25 01/14/25 Range/Units 08:39 09:15 WBC 8.3 (4.0-11.0) 10^3/uL RBC 3.99 L (4.20-5.40) 10^6/uL Hgb 12.2 (12.0-16.0) g/dL Hct 38.5 (36.0-48.0) % MCV 96.5 (81.0-99.0) fL MCH 30.6 (26.7-34.0) pg MCHC 31.7 (29.9-35.2) g/dL RDW 15.7 H (11.0-15.0) % Plt Count 240 (150-450) 10^3/uL MPV 10.5 (9.5-13.5) fL Neut % (Auto) 74.4 (43.0-75.0) % Lymph % (Auto) 15.6 L (20.5-60.0) % [place] % (Auto) 5.8 (1.7-12.0) % Eos % (Auto) 2.5 (0.9-7.0) % Baso % (Auto) 0.4 (0.2-2.0) % Neut # (Auto) 6.2 (1.4-6.5) 10^3/uL Lymph # (Auto) 1.3 (1.2-3.8) 10^3/uL [place] # (Auto) 0.5 (0.3-0.8) 10^3/uL Eos # (Auto) 0.2 (0.0-0.7) 10^3/uL Baso # (Auto) 0.0 (0.0-0.1) 10^3/uL Abs Immat Gran (auto) 0.11 H (0.00-0.03) 10^3/uL Imm/Tot Granulo (auto) 1.3 H (0.0-0.5) % Sodium 141 (136-145) mmol/L Potassium 4.7 (3.5-5.1) mmol/L Chloride 107 (98-107) mmol/L Carbon Dioxide 26.0 (21.0-32.0) mmol/L Anion Gap 12.7 BUN 25.0 H (7.0-18.0) mg/dL Creatinine 0.95 (0.55-1.02) mg/dL Est GFR ( Amer) >60 (>=60 mL/min/1.73m^2) Est GFR (Non-Af Amer) 56 L (>=60 mL/min/1.73m^2) BUN/Creatinine Ratio 26.3 Glucose 94 (74-106) mg/dL Calcium 8.5 (8.5-10.1) mg/dL Magnesium 2.0 (1.8-2.4) mg/dL Total Bilirubin 0.4 (0.2-1.0) mg/dL AST 12 L (15-37) U/L ALT 9 L (14-59) U/L Alkaline Phosphatase 108 (46-116) U/L Total Protein 6.8 (6.4-8.2) g/dL Albumin 2.6 L (3.4-5.0) g/dL Globulin 4.2 g/dL Albumin/Globulin Ratio 0.6 Free T4 1.27 (0.76-1.46) ng/dL Free T3 1.50 L (2.18-3.98) pg/mL Valproic Acid 16.1 L (50.0-100.0) ug/mL POC Glucose 85 (74-106) mg/dL ECG Data Attestation: I personally reviewed and interpreted this ECG as follows: Interpretation: EKG interpretation: Emergency Department physician interpretation. Normal sinus rhythm at 61bpm. Normal axis, normal intervals and no ST segment elevation or depression. Normal EKG. Discharge Plan Discharge Chief Complaint: Seizure Clinical Impression: Generalized seizure Patient Disposition: Admitted as Observation Time of Disposition Decision: 10:11 Prescriptions / Home Meds: New lacosamide [Vimpat] 100 mg tablet 100 mg PO BID Qty: 60 3RF lacosamide [Vimpat] 100 mg tablet 100 mg PO BID Qty: 60 3RF No Action ropinirole 0.25 mg tablet 0.25 mg PO BID@0800,1700 loperamide [Anti-Diarrheal (loperamide)] 2 mg capsule 2 mg PO .3X A WEEK Rx Instructions: ON WEDNESDAY, AND WEDNESDAY AT BEDTIME levothyroxine 150 mcg tablet 175 mcg PO DAILY Creon 12,000-38,000 -60,000 unit capsule,delayed release(DR/EC) 1 cap PO BIDWM metoprolol succinate 50 mg tablet extended release 24 hr 50 mg PO DAILY ropinirole 0.5 mg tablet 0.5 mg PO .HS Rx Instructions: hs paroxetine HCl 20 mg tablet 20 mg PO DAILY FlorastorSelect Gut Boost 250-300 mg capsule PO donepezil [Aricept] 10 mg tablet 10 mg PO DAILY zinc 50 mg capsule 50 mg PO DAILY diphenhydramine-acetaminophen [Acetadryl] 25-500 mg tablet 1 tab PO DAILY acetaminophen 500 mg capsule 1,000 mg PO Q4H PRN (Reason: fever or pain) Patient Comments: may take 1-2tabs every 4-6 hours as needed Print Language: Portuguese Referrals: LEAH JAIN [Primary Care Provider] - 1 week
[2025-01-14] MEDS: LORAZEPAM 2 MG/ML VIAL 1 MG IV (08:54)
[2025-01-14] MEDS: 0.9 % SODIUM CHLORIDE 1,000 ML 999 ML IV (08:54)
--- NOTE | 2025-01-14 08:59 | PC.NURSE ---
O2 initiated at 2L per NC per doctor order
[2025-01-14] MEDS: LEVETIRACETAM 500 MG in 0.9 % SODIUM CHLORIDE 100 ML 420 MG IV (09:16)
[2025-01-14 09:22] LABS: Basophils Percent Auto 0.4 % (0.2-2.0); Eosinophils Absolute Auto 0.2 10^3/uL (0.0-0.7); Eosinophils Percent Auto 2.5 % (0.9-7.0); Hematocrit 38.5 % (36.0-48.0); Hemoglobin 12.2 g/dL (12.0-16.0); Immature Granulocytes Abs Auto 0.11 10^3/uL (0.00-0.03); Immature Granulocytes Pct Auto 1.3 % (0.0-0.5); Lymphocytes Absolute Auto 1.3 10^3/uL (1.2-3.8); Lymphocytes Percent Auto 15.6 % (20.5-60.0); Mean Corpuscular HGB Conc 31.7 g/dL (29.9-35.2); Mean Corpuscular Hemoglobin 30.6 pg (26.7-34.0); Mean Corpuscular Volume 96.5 fL (81.0-99.0); Mean Platelet Volume 10.5 fL (9.5-13.5); Monocytes Absolute Auto 0.5 10^3/uL (0.3-0.8); Monocytes Percent Auto 5.8 % (1.7-12.0); Neutrophils Absolute Auto 6.2 10^3/uL (1.4-6.5); Neutrophils Percent Auto 74.4 % (43.0-75.0); Platelet Count 240 10^3/uL (150-450); Red Blood Count 3.99 10^6/uL (4.20-5.40); Red Cell Distribution Width 15.7 % (11.0-15.0); White Blood Count 8.3 10^3/uL (4.0-11.0)
[2025-01-14 09:35] LABS: Alanine Aminotransferase 9 U/L (14-59); Albumin Globulin Ratio 0.6; Albumin Level 2.6 g/dL (3.4-5.0); Alkaline Phosphatase 108 U/L (46-116); Anion Gap 12.7; Aspartate Amino Transferase 12 U/L (15-37); BUN Creatinine Ratio 26.3; Bilirubin Total 0.4 mg/dL (0.2-1.0); Calcium 8.5 mg/dL (8.5-10.1); Chloride 107 mmol/L (98-107); Estimated GFR (African America >60 (>=60 mL/min/1.73m^2); Estimated GFR (Non-African Ame 56 (>=60 mL/min/1.73m^2); Globulin 4.2 g/dL; Glucose 94 mg/dL (74-106); Potassium 4.7 mmol/L (3.5-5.1); Sodium 141 mmol/L (136-145); Total Protein 6.8 g/dL (6.4-8.2)
[2025-01-14 09:43] LABS: Free T4 1.27 ng/dL (0.76-1.46)
[2025-01-14 09:48] LABS: Valproic Acid 16.1 ug/mL (50.0-100.0)
--- NOTE | 2025-01-14 12:07 | P.HP_ITS ---
HPI H&P: HPI History of Present Illness Chief complaint: unresponsive, BREAKTHROUGH SEIZURE Narrative: 84-year-old female with history, hypothyroidism, essential hypertension who currently resides at an extended care facility was in her usual state of health this morning.patient was on a commode when she Head: Sudden onset loss of consciousness followed by generalized tonic and clonic movement that lasted for about 5 minutes and was followed by postictal confusion. Patient was brought over to ED via EMS. She had normal vital signs but was noted to be drowsy/lethargic. Patient had somewhat similar episode in May 2024 that was suspected to be a seizure-like activity but that it was her first episode, she was not started on antiepileptics. Patient was supposed to follow-up with neurology as outpatient but her appointment was pushed back a few times. She was started on low-dose Depakote by her primary care physician until she was evaluated by neurology as outpatient. Case was discussed by ER provider by teleneurology who recommended starting patient on Vimpat. Patient will need an EEG and MRI with and without contrast for adult onset/new onset seizures. Patient had received IV Ativan in ED along with IV Keppra load. Patient was drowsy/lethargic and I evaluated her. According to the daughter, patient is confused at baseline due to her dementia and usually likes to sleep a lot. She has poor functional status and is able to ambulate using a walker with some a ssistance. At time of evaluation, patient denied any pain, active complaints. Opioid HPI Opioid Management Most Recent Pain and Opioid Data: Last Pain Scale 0 05/19/24 11:13 05/19/24 Last Pain Intensity 1 05/19/24 09:22 05/19/24 Last ORT Total Score 0 01/14/25 10:49 01/14/25 Last ORT Risk Category Low Risk 01/14/25 10:49 01/14/25 Review of Systems ROS Narrative Limited review of system but overall does not appear to be in active pain or distress [facility] Medical History (Updated 01/14/25 @ 12:13 by Shaikh Jayla MD) Acute alteration in mental status ?R41.82 - Altered mental status, unspecified (ICD-10) Fall ?W19.XXXA - Unspecified fall, initial encounter (ICD-10) Generalized weakness ?R53.1 - Weakness (ICD-10) TIA (transient ischemic attack) ?G45.9 - Transient cerebral ischemic attack, unspecified (ICD-10) Muscle spasm ?M62.838 - Other muscle spasm (ICD-10) Dementia ?F03.90 - Unspecified dementia, unspecified severity, without behavioral disturbance, psychotic disturbance, mood disturbance, and anxiety (ICD-10) Fracture of right femur ?S72.91XA - Unspecified fracture of right femur, initial encounter for closed fracture (ICD-10) Thyroid cancer ?C73 - Malignant neoplasm of thyroid gland (ICD-10) Hypothyroidism ?E03.9 - Hypothyroidism, unspecified (ICD-10) Hypertension ?I10 - Essential (primary) hypertension (ICD-10) Surgical History (Updated 05/18/24 @ 11:04 by Brandy Gamez) History of right hip replacement ?Z96.641 - Presence of right artificial hip joint (ICD-10) Family History (Updated 05/18/24 @ 11:05 by Brandy Gamez) Father Family history of CHF (congestive heart failure) Family history of diabetes mellitus Family history of hypertension Family history of myocardial infarction Social History (Updated 05/18/24 @ 11:06 by Brandy Gamez) Within the past year, how often did you have a drink containing alcohol: never Score interpretation: A score less than 3 is consistent with normal alcohol consumption. Smoking status: Never smoker Non-prescribed substance use: denies use Previous occupational history: retired Highest level of school completed/degree received: Associate degree: occupational, technical, vocational program In a typical week, how many times do you talk on the telephone with family, friends, or neighbors: 3 or more times per week How often do you get together with friends or relatives: 3 or more times per week How often do you attend voodoo or jewish services: 1-3 times per year Do you belong to any clubs or organizations such as voodoo groups unions, fraternal or athletic groups, or school groups: no Little interest or pleasure in doing things: not at all Feeling down, depressed, or hopeless: not at all Feel stressed/tense/nervous/anxious/difficulty sleeping: not at all Meds Home Medications and Allergies Home Medications ?Medication ?Instructions ?Recorded ?Confirmed ?Type levothyroxine 150 mcg tablet 175 mcg PO DAILY 04/30/23 01/14/25 History fvxhdc-xweclijf-chuumjw 1 cap PO BIDWM 04/30/23 01/14/25 History 12,000-38,000-60,000 unit capsule,delayed rel (Creon) metoprolol succinate 50 mg 50 mg PO DAILY 04/30/23 01/14/25 History tablet,extended release 24 hr paroxetine HCl 20 mg tablet 20 mg PO DAILY 07/23/23 01/14/25 History ropinirole 0.5 mg tablet 0.5 mg PO .HS 07/23/23 01/14/25 History loperamide 2 mg capsule 2 mg PO .3X A WEEK 05/18/24 01/14/25 History (Anti-Diarrheal (loperamide)) ropinirole 0.25 mg tablet 0.25 mg PO BID@0800,1700 05/18/24 01/14/25 History Saccharomyces boulardii 250 cap PO 01/14/25 History mg-inulin 300 mg capsule (FlorastorSelect Gut Boost) acetaminophen 500 mg capsule 1,000 mg PO Q4H PRN fever or pain 01/14/25 01/14/25 History diphenhydramine 25 1 tab PO DAILY 01/14/25 01/14/25 History mg-acetaminophen 500 mg tablet (Acetadryl) donepezil 10 mg tablet (Aricept) 10 mg PO DAILY 01/14/25 01/14/25 History lacosamide 100 mg tablet (Vimpat) 100 mg PO BID #60 tabs 01/14/25 Rx lacosamide 100 mg tablet (Vimpat) 100 mg PO BID #60 tabs 01/14/25 Rx zinc 50 mg capsule 50 mg PO DAILY 01/14/25 01/14/25 History Allergies Allergy/AdvReac Type Severity Reaction Status Date / Time Sulfa (Sulfonamide Allergy Severe Hives Verified 09/19/23 11:16 Antibiotics) metoclopramide (From Reglan) AdvReac Severe termors Verified 09/19/23 11:16 Exam Constitutional Vital Signs, click to edit/add: Last Vital Signs Temp 97.7 F 01/14/25 10:49 Pulse 56 L 01/14/25 10:49 Resp 20 01/14/25 10:49 BP 190/74 H 01/14/25 10:49 Pulse Ox 92 L 01/14/25 10:49 O2 Del Method Nasal Cannula 01/14/25 10:49 O2 Flow Rate 2 01/14/25 10:49 Documenting provider has reviewed patient's vital signs: yes Common normals: no apparent distress General appearance: cooperative HENMT Common normals: normocephalic and head/scalp atraumatic Head and scalp: normocephalic and atraumatic Eye Common normals: conjunctivae normal and no scleral icterus Conjunctiva: conjunctiva(e) normal Respiratory Common normals: normal respiratory effort and clear to auscultation bilaterally Effort & inspection: able to speak in complete sentences Auscultation: clear to auscultation bilaterally Cardio Common normals: regular rate, S1 normal heart sound and S2 normal heart sound Rate: regular rate Heart sounds: S1 normal and S2 normal GI Common normals: Normal to inspection, nondistended, normoactive bowel sounds present, soft to palpation, non-tender and no hepatosplenomegaly Palpation: soft and no hepatosplenomegaly Extremity Common normals: no clubbing, cyanosis or edema Neuro Common normals: moves all extremities and no focal motor deficits Sensorium/orientation: lethargic and somnolent Psych Common normals: mental status grossly normal, denies hallucinations, denies homicidal ideation and denies suicidal ideation Results Labs Labs: Short CBC 01/14/25 Range/Units 09:15 WBC 8.3 (4.0-11.0) 10^3/uL Hgb 12.2 (12.0-16.0) g/dL Hct 38.5 (36.0-48.0) % Plt Count 240 (150-450) 10^3/uL BMP 01/14/25 09:15 Sodium 141 Potassium 4.7 Chloride 107 Carbon Dioxide 26.0 BUN 25.0 H Creatinine 0.95 Glucose 94 Calcium 8.5 Liver Function 01/14/25 Range/Units 09:15 Total Bilirubin 0.4 (0.2-1.0) mg/dL AST 12 L (15-37) U/L ALT 9 L (14-59) U/L Alkaline Phosphatase 108 (46-116) U/L Albumin 2.6 L (3.4-5.0) g/dL Assessment and Plan Assessment and Plan (1) Generalized seizure: (2) Dehydration, mild: (3) Dementia: Qualifiers: Dementia type: Alzheimer's Alzheimer's disease onset: early onset Dementia severity: severe Dementia behavioral or psychological symptom: without behavioral, psychotic, or mood disturbance or anxiety Qualified Code(s): G30.0 - Alzheimer's disease with early onset; F02.C0 - Dementia in other diseases classified elsewhere, severe, without behavioral disturbance, psychotic disturbance, mood disturbance, and anxiety (4) Hypertension: Qualifiers: Hypertension type: primary hypertension Qualified Code(s): I10 - Essential (primary) hypertension (5) Hypothyroidism: Qualifiers: Hypothyroidism type: unspecified Qualified Code(s): E03.9 - Hypothyroidism, unspecified Plan Patient presented with generalized tonic-clonic seizure. No acute finding on CT head. MRI with and without contrast ordered. EEG ordered. Patient started on oral Vimpat 50 twice daily that can be increased up to 100 twice a day after a week. Teleneurology consulted. PT/OT evaluation ordered. Continue with patient's home medications.
[2025-01-14] MEDS: 0.9 % SODIUM CHLORIDE 1,000 ML 100 ML IV ×2 (12:51→23:29)
[2025-01-14] MEDS: ENOXAPARIN SODIUM 40 MG/0.4 ML SYRINGE SUBQ (12:51)
[2025-01-14] MEDS: HYDRALAZINE HCL 20 MG/ML VIAL 10 MG IVP (12:55)
[2025-01-14 15:38] LABS: Bilirubin Urine NEGATIVE (NEGATIVE); Blood Urine SMALL (NEGATIVE); Clarity Urine SL CLOUDY (CLEAR); Color Urine LT. YELLOW (YELLOW); Glucose Urine UA NEGATIVE (NEGATIVE); Ketones Urine NEGATIVE (NEGATIVE); Leukocyte Esterase Urine LARGE (NEGATIVE); Nitrite Urine NEGATIVE (NEGATIVE); Protein Urine NEGATIVE (NEG/TRACE); Urobilinogen Urine 0.2 EU/dL (0.2-1.0); pH Urine 7.5 (5.0-9.0)
[2025-01-14 15:45] LABS: Urine Microscopic Indicated YES
[2025-01-14 15:46] LABS: Bacteria Urine MODERATE #/HPF (NONE SEEN); Mucus Urine TRACE (NONE SEEN); RBC Urine 0-2 #/HPF (0-2); Squamous Epithelial Cell Urine RARE #/LPF (NONE/RARE)
[2025-01-14 15:47] LABS: Cast Seen? NONE SEEN #/LPF (NONE SEEN); Crystals Seen? None Seen #/HPF (None Seen); Urine Culture Indicated YES-FRMC
[2025-01-14] MEDS: CEFTRIAXONE 1,000 MG in 0.9 % SODIUM CHLORIDE 50 ML 100 MG IV (16:30)
[2025-01-14] MEDS: LACOSAMIDE 50 MG TABLET PO (21:03)
[2025-01-14] MEDS: ROPINIROLE HCL 0.25 MG TABLET 0.5 MG PO (21:03)
[2025-01-14] MEDS: DONEPEZIL HCL 10 MG TABLET PO (21:03)
[2025-01-15] VITALS (17 sets, daily range): BP systolic 162–168; BP diastolic 68–84; PULSE 59–84; TEMP 36.5–36.8; O2SAT 93–97
--- NOTE | 2025-01-15 | MR_ITS ---
The [address] [address] Patient Name: ALANNAH SERVIN MRN: [id number] date: 1940 Sex: F Assigned Patient Location: [place] Current Patient Location: [place] Accession/Order Number: [id number] Exam Date: 01/15/2025 16:50 Report Date: 01/15/2025 16:53 At the request of: SHAIKH ISAMAR ARREAGA Procedure: MR head/brain wo con MR head/brain wo con 01/15/2025 3:35 PM SIGN AND SYMPTOMS: Seizure, thyroid cancer, known dementia PROTOCOL: Multiplanar multisequence MR images of the brain were obtained without IV contrast COMPARISON: 01/14/2025 and 05/19/2024 FINDINGS: Motion artifact partly degrades image quality. Extra axial spaces: There is age-related cortical atrophy. Hemorrhage: None. Ventricular system: Within normal limits. Basal cisterns: Within normal limits and not effaced. Cerebral parenchyma: There is periventricular and subcortical white matter T2 and FLAIR hyperintense signal consistent with chronic microvascular ischemic change. This is similar to the prior exams. No evidence of acute or subacute ischemia. Midline shift: None.. Cerebellum: Within normal limits. Brainstem: Within normal limits. OTHER: Calvarium: Normal marrow signal. Vascular system: Satisfactory flow voids within the anterior and posterior circulation. Visualized Paranasal sinuses: Within normal limits. Visualized Orbits: Within normal limits. Visualized upper cervical spine: Within normal limits. Sella and skull base: Within normal limits. MR/MR head/brain wo con IMPRESSION: Motion artifact heavily degraded image quality. Chronic age-related neurodegenerative changes are present as above. This is similar to the prior studies. Impression dictated by: Garth Owens M.D.01/15/2025 4:53 PM Dictation Location: [place] [address] Electronically authenticated by: [id number] Y Date: 01/15/2025 16:53
[2025-01-15] MEDS: LEVOTHYROXINE SODIUM 175 MCG TABLET PO (05:49)
[2025-01-15 07:32] LABS: Basophils Percent Auto 0.2 % (0.2-2.0); Eosinophils Absolute Auto 0.1 10^3/uL (0.0-0.7); Eosinophils Percent Auto 0.6 % (0.9-7.0); Hematocrit 38.5 % (36.0-48.0); Hemoglobin 12.1 g/dL (12.0-16.0); Immature Granulocytes Abs Auto 0.03 10^3/uL (0.00-0.03); Immature Granulocytes Pct Auto 0.3 % (0.0-0.5); Lymphocytes Absolute Auto 1.3 10^3/uL (1.2-3.8); Lymphocytes Percent Auto 15.3 % (20.5-60.0); Mean Corpuscular HGB Conc 31.4 g/dL (29.9-35.2); Mean Corpuscular Hemoglobin 30.7 pg (26.7-34.0); Mean Corpuscular Volume 97.7 fL (81.0-99.0); Mean Platelet Volume 10.4 fL (9.5-13.5); Monocytes Absolute Auto 0.4 10^3/uL (0.3-0.8); Monocytes Percent Auto 5.1 % (1.7-12.0); Neutrophils Absolute Auto 6.8 10^3/uL (1.4-6.5); Neutrophils Percent Auto 78.5 % (43.0-75.0); Platelet Count 254 10^3/uL (150-450); Red Blood Count 3.94 10^6/uL (4.20-5.40); Red Cell Distribution Width 16.1 % (11.0-15.0); White Blood Count 8.6 10^3/uL (4.0-11.0)
[2025-01-15 07:46] LABS: Alanine Aminotransferase <6 U/L (14-59); Albumin Globulin Ratio 0.7; Albumin Level 2.6 g/dL (3.4-5.0); Alkaline Phosphatase 110 U/L (46-116); Anion Gap 13.8; Aspartate Amino Transferase 16 U/L (15-37); BUN Creatinine Ratio 18.5; Bilirubin Total 0.5 mg/dL (0.2-1.0); Calcium 8.4 mg/dL (8.5-10.1); Carbon Dioxide 24.3 mmol/L (21.0-32.0); Chloride 109 mmol/L (98-107); Estimated GFR (African America >60 (>=60 mL/min/1.73m^2); Estimated GFR (Non-African Ame >60 (>=60 mL/min/1.73m^2); Globulin 3.7 g/dL; Glucose 95 mg/dL (74-106); Potassium 4.1 mmol/L (3.5-5.1); Sodium 143 mmol/L (136-145); Total Protein 6.3 g/dL (6.4-8.2)
--- NOTE | 2025-01-15 08:08 | PM.PN ---
Progress Note: Subjective Subjective Interval history: Patient is sitting up in the chair. She says yes to all questions. Her daughters Shira and Hazel are present at bedside. Patient has been residing in a local assisted Living. She has been declining with respect to her dementia, but has been getting up with her walker with assistance. About a year ago, patient had an episode of seizure like activity and has been on Depakote. She has been unable to see Neurology as outpatient but has appointment with [facility]rology on 02/17/25. It appears yesterday is when another episode happened and the seizure activity lasted about 7-8 minutes. She was given Keppra load and Ativan in the ER and was started on Vimpat 50mg BID per TeleNeurology requests. This morning she is not able to answer questions, but is alert. She will not follow any commands other than wiggle her toes. Exam Narrative Exam Narrative: General: Patient is alert, but not oriented to person, place or time with flat affect Skin: no visible rashes, or ulcers Head: atraumatic, acephalic Eyes: PERRLA, no nystagmus present, conjunctiva clear, no scleral icterus Ears: normal gross auditory acuity Nose: symmetric, no discharge, no maxillary or frontal sinus tenderness Heart: Normal rate and rhythm, no murmurs/rubs/gallops Lungs: no audible wheezes, crackles and normal breath sounds all lung hendrix Abdomen: Normal audible bowel sounds, no distension, No palpable masses, no organomegaly, no rebound/guarding/ or rigidity Musculoskeletal:no swelling bilateral lower extremities, brace on right lower ext, cannot assess strength as patient will not perform exam Neuro: CN II-X appear grossly intact Constitutional Vital Signs, click to edit/add: Last Vital Signs Temp 98 F 01/15/25 04:00 Pulse 73 01/15/25 07:49 Resp 18 01/15/25 04:00 BP 165/68 H 01/15/25 04:00 Pulse Ox 94 L 01/15/25 04:00 O2 Del Method Room Air 01/15/25 04:00 O2 Flow Rate 2 01/14/25 10:49 Progress Note: Objective Labs Labs: Short CBC 01/14/25 01/15/25 Range/Units 09:15 07:25 WBC 8.3 8.6 (4.0-11.0) 10^3/uL Hgb 12.2 12.1 (12.0-16.0) g/dL Hct 38.5 38.5 (36.0-48.0) % Plt Count 240 254 (150-450) 10^3/uL BMP 01/14/25 01/15/25 09:15 07:25 Sodium 141 143 Potassium 4.7 4.1 Chloride 107 109 H Carbon Dioxide 26.0 24.3 BUN 25.0 H 15.0 Creatinine 0.95 0.81 Glucose 94 95 Calcium 8.5 8.4 L Liver Function 01/14/25 01/15/25 Range/Units 09:15 07:25 Total Bilirubin 0.4 0.5 (0.2-1.0) mg/dL AST 12 L 16 (15-37) U/L ALT 9 L <6 L (14-59) U/L Alkaline Phosphatase 108 110 (46-116) U/L Albumin 2.6 L 2.6 L (3.4-5.0) g/dL Urine 01/14/25 Range/Units 15:30 Urine Color Lt. yellow (YELLOW) Urine Clarity Sl cloudy (CLEAR) Urine pH 7.5 (5.0-9.0) Ur Specific [place] 1.010 (1.005-1.025) Urine Protein Negative (NEG/TRACE) mg/dL Urine Glucose (UA) Negative (NEGATIVE) mg/dL Progress Note: A&P Assessment and Plan (1) Generalized seizure: Assessment and Plan: generalized tonic-clonic seizure. No acute finding on CT head. MRI with and without contrast ordered. EEG ordered. Patient started on oral Vimpat 50 twice daily. Awaiting testing and Tele-Neurology recommendations; PT/OT evaluation ordered (2) Dehydration, mild: Assessment and Plan: Monitor renal function, just poor oral intake. Hold IVF (3) Dementia: Assessment and Plan: has severe dementia at baseline but post-ictal state and seizure activity can make this worse. Qualifiers: Alzheimer's disease onset: early onset Dementia behavioral or psychological symptom: without behavioral, psychotic, or mood disturbance or anxiety Dementia severity: severe Dementia type: Alzheimer's Qualified Code(s): G30.0 - Alzheimer's disease with early onset; F02.C0 - Dementia in other diseases classified elsewhere, severe, without behavioral disturbance, psychotic disturbance, mood disturbance, and anxiety (4) Hypertension: Assessment and Plan: continue metoprolol Qualifiers: Hypertension type: primary hypertension Qualified Code(s): I10 - Essential (primary) hypertension (5) Hypothyroidism: Assessment and Plan: continue levothyroxine Qualifiers: Hypothyroidism type: unspecified Qualified Code(s): E03.9 - Hypothyroidism, unspecified (6) UTI (urinary tract infection): Assessment and Plan: started on rocephin, awaiting urine culture Qualifiers: Urinary tract infection type: acute cystitis Hematuria presence: without hematuria Qualified Code(s): N30.00 - Acute cystitis without hematuria Plan Patient is a DNRCCA Patient was made inpatient status as she is expected to cross 2 midnights for further work up and treatment plan of her acute seizure Urinary Catheter Management Urinary Catheter Management Pure Wick: Cath placed during this visit: yes Urethral indwelling: Yes Reason for continuing: acute urinary retention Insertion date: 01/14/25 Insertion time: 12:00
[2025-01-15] MEDS: LACOSAMIDE 50 MG TABLET PO (08:34)
[2025-01-15] MEDS: PAROXETINE HCL 20 MG TABLET PO (08:34)
[2025-01-15] MEDS: ROPINIROLE HCL 0.25 MG TABLET PO ×2 (08:34→16:43)
[2025-01-15] MEDS: METOPROLOL SUCCINATE 50 MG TAB.ER.24H PO (08:34)
[2025-01-15] MEDS: ENOXAPARIN SODIUM 40 MG/0.4 ML SYRINGE SUBQ (08:34)
[2025-01-15] MEDS: ACETAMINOPHEN 325 MG TABLET 650 MG PO (08:35)
[2025-01-15] MEDS: 0.9 % SODIUM CHLORIDE 1,000 ML 100 ML IV ×2 (09:30→21:00)
--- NOTE | 2025-01-15 11:00 | CM.NOTE ---
Rounds made with Dr. Hinson, discussed with pt and daughters plan of care. Pt will have MRI today and consult with teleneuro for further recommendations. PT will also evaluate pt today for discharge planning. Pt at this time comes from [facility] [address]. Daughter's plan is for pt to return to [facility].
[2025-01-15 12:08] LABS: Prolactin 39.7 ng/mL (3.6-32.0)
[2025-01-15] MEDS: LOPERAMIDE HCL 1 MG/7.5 ML LIQUID 2 MG PO (12:10)
--- NOTE | 2025-01-15 14:47 | SWNOTE1 ---
JAMES called and spoke to Cele at [facility]. Cele did voice that as long as pt can walk a few feet with a one person assist, they do plan on taking her back at discharge. SW to let nurse know.
--- NOTE | 2025-01-15 15:34 | CM.NOTE ---
Important Message From Medicare discussed with pt's daughter (POA), verbalizes understanding and signs paper. Original given to pt and copy placed on pt's chart.
[2025-01-15] MEDS: CEFTRIAXONE 1,000 MG in 0.9 % SODIUM CHLORIDE 50 ML 100 MG IV (16:43)
[2025-01-15] MEDS: ROPINIROLE HCL 0.25 MG TABLET 0.5 MG PO (20:59)
[2025-01-15] MEDS: DONEPEZIL HCL 10 MG TABLET PO (20:59)
[2025-01-15] MEDS: LACOSAMIDE 50 MG TABLET 100 MG PO (21:00)
[2025-01-16] VITALS (14 sets, daily range): BP systolic 144–186; BP diastolic 53–72; PULSE 55–75; TEMP 36.5–36.7; O2SAT 93–97
[2025-01-16] MEDS: HYDRALAZINE HCL 20 MG/ML VIAL 10 MG IVP (04:56)
[2025-01-16] MEDS: LEVOTHYROXINE SODIUM 175 MCG TABLET PO (05:47)
[2025-01-16 06:23] LABS: Basophils Percent Auto 0.4 % (0.2-2.0); Eosinophils Absolute Auto 0.1 10^3/uL (0.0-0.7); Eosinophils Percent Auto 1.3 % (0.9-7.0); Hematocrit 38.2 % (36.0-48.0); Hemoglobin 12.2 g/dL (12.0-16.0); Immature Granulocytes Abs Auto 0.12 10^3/uL (0.00-0.03); Immature Granulocytes Pct Auto 1.5 % (0.0-0.5); Lymphocytes Absolute Auto 1.4 10^3/uL (1.2-3.8); Lymphocytes Percent Auto 17.9 % (20.5-60.0); Mean Corpuscular HGB Conc 31.9 g/dL (29.9-35.2); Mean Corpuscular Hemoglobin 30.6 pg (26.7-34.0); Mean Corpuscular Volume 95.7 fL (81.0-99.0); Mean Platelet Volume 10.1 fL (9.5-13.5); Monocytes Absolute Auto 0.5 10^3/uL (0.3-0.8); Monocytes Percent Auto 6.3 % (1.7-12.0); Neutrophils Absolute Auto 5.6 10^3/uL (1.4-6.5); Neutrophils Percent Auto 72.6 % (43.0-75.0); Platelet Count 271 10^3/uL (150-450); Red Blood Count 3.99 10^6/uL (4.20-5.40); Red Cell Distribution Width 15.9 % (11.0-15.0); White Blood Count 7.8 10^3/uL (4.0-11.0)
[2025-01-16 06:41] LABS: Alanine Aminotransferase 12 U/L (14-59); Albumin Globulin Ratio 0.7; Albumin Level 2.7 g/dL (3.4-5.0); Alkaline Phosphatase 117 U/L (46-116); Anion Gap 11.3; Aspartate Amino Transferase 18 U/L (15-37); Bilirubin Total 0.6 mg/dL (0.2-1.0); Calcium 8.5 mg/dL (8.5-10.1); Carbon Dioxide 25.8 mmol/L (21.0-32.0); Chloride 106 mmol/L (98-107); Estimated GFR (African America >60 (>=60 mL/min/1.73m^2); Estimated GFR (Non-African Ame >60 (>=60 mL/min/1.73m^2); Globulin 4.1 g/dL; Glucose 99 mg/dL (74-106); Potassium 4.1 mmol/L (3.5-5.1); Sodium 139 mmol/L (136-145); Total Protein 6.8 g/dL (6.4-8.2)
--- NOTE | 2025-01-16 09:11 | P.DS_ITS ---
DS: Providers Provider Date of admission: 01/15/25 11:29 Primary care physician: LEAH JAIN Admitting clinician: Shaikh Jayla Consults: 01/14/25 Consult to Dietitian Routine Reason for consultation: Lowe albumin 01/14/25 11:22 Physical Therapy Eval and Treat Routine Reason for consultation: Ambulatory dysfunction/weakness 01/14/25 12:14 Consult to TeleNeurology Routine Reason for consultation: seizure Discharging clinician: Beatriz Hinson DS: Diagnosis Discharge Diagnosis (1) Generalized seizure: (2) Dehydration, mild: (3) Dementia: Qualifiers: Alzheimer's disease onset: early onset Dementia behavioral or psychological symptom: without behavioral, psychotic, or mood disturbance or anxiety Dementia severity: severe Dementia type: Alzheimer's Qualified Code(s): G30.0 - Alzheimer's disease with early onset; F02.C0 - Dementia in other diseases classified elsewhere, severe, without behavioral disturbance, psychotic disturbance, mood disturbance, and anxiety (4) Hypertension: Qualifiers: Hypertension type: primary hypertension Qualified Code(s): I10 - Essential (primary) hypertension (5) Hypothyroidism: Qualifiers: Hypothyroidism type: unspecified Qualified Code(s): E03.9 - Hypothyroidism, unspecified (6) UTI (urinary tract infection): Qualifiers: Hematuria presence: without hematuria Urinary tract infection type: acute cystitis Qualified Code(s): N30.00 - Acute cystitis without hematuria DS: Summary Hospital Course Hospital Course: Patient was admitted on 01/14/25 for acute seizure and post ictal state. Patient has been residing in a local assisted Living. She has been declining with respect to her dementia, but has been getting up with her walker with assistance. About a year ago, patient had an episode of seizure like activity and has been on Depakote. She has been unable to see Neurology as outpatient but has appointment with [facility] Neurology on 03/20/25. This time, the seizure activity lasted about 7-8 minutes. She was given Keppra load and Ativan in the ER and was started on Vimpat 50mg BID per TeleNeurology request. She had EEG and results of this are still pending as advanced Neurology reads this, MRI which showed no acute process. I was also present when Teleneurology was consulting yesterday. They recommended increasing Vimpat to 100mg BID. This change was done yesterday evening. At the time of discharge her labs and vitals are stable. She has had no further seizure. She doesn't answer questions, other than yes , but is alert. I have discussed with Daughter Shira, and family prefers she return to her living facility today. She will have close Neurology follow up as outpatient. Vimpat was sent to the pharmacy. I do not feel she requires any further treatment for UTI. Will see what/if cultures result anything. She was on Rocephin here. Status at Discharge Functional status at discharge: uses cane/walker Overall status at discharge: patient is progressing back to baseline Time Spent with Patient Time attestation: Total time spent providing and/or coordinating discharge services: Time spent: greater than 30 minutes Exam Narrative Exam Narrative: General: Patient is alert, but not oriented to person, place or time with flat affect Skin: no visible rashes, or ulcers Head: atraumatic, acephalic Eyes: PERRLA, no nystagmus present, conjunctiva clear, no scleral icterus Ears: normal gross auditory acuity Nose: symmetric, no discharge, no maxillary or frontal sinus tenderness Heart: Normal rate and rhythm, no murmurs/rubs/gallops Lungs: no audible wheezes, crackles and normal breath sounds all lung hendrix Abdomen: Normal audible bowel sounds, no distension, No palpable masses, no organomegaly, no rebound/guarding/ or rigidity Musculoskeletal:no swelling bilateral lower extremities, brace on right lower ext, cannot assess strength as patient will not perform exam Neuro: CN II-X appear grossly intact Constitutional Vital Signs, click to edit/add: Last Vital Signs Temp 97.7 F 01/16/25 04:53 Pulse 75 01/16/25 08:00 Resp 18 01/16/25 04:53 BP 144/53 H 01/16/25 05:51 Pulse Ox 97 01/16/25 04:53 O2 Del Method Room Air 01/16/25 04:53 O2 Flow Rate 2 01/14/25 10:49 DS: Data Data Completed and Pending Labs on day of discharge: Labs from last 24 hours 01/16/25 01/14/25 06:17 09:15 WBC 7.8 RBC 3.99 L Hgb 12.2 Hct 38.2 MCV 95.7 MCH 30.6 MCHC 31.9 RDW 15.9 H Plt Count 271 MPV 10.1 Neut % (Auto) 72.6 Lymph % (Auto) 17.9 L [place] % (Auto) 6.3 Eos % (Auto) 1.3 Baso % (Auto) 0.4 Neut # (Auto) 5.6 Lymph # (Auto) 1.4 [place] # (Auto) 0.5 Eos # (Auto) 0.1 Baso # (Auto) 0.0 Abs Immat Gran (auto) 0.12 H Imm/Tot Granulo (auto) 1.5 H Sodium 139 Potassium 4.1 Chloride 106 Carbon Dioxide 25.8 Anion Gap 11.3 BUN 7.0 Creatinine 0.70 Est GFR ( Amer) >60 Est GFR (Non-Af Amer) >60 BUN/Creatinine Ratio 10.0 Glucose 99 Calcium 8.5 Total Bilirubin 0.6 AST 18 ALT 12 L Alkaline Phosphatase 117 H Total Protein 6.8 Albumin 2.7 L Globulin 4.1 Albumin/Globulin Ratio 0.7 Prolactin 39.7 H Preliminary micro results at discharge 01/14/25 15:30 Urine Culture - Preliminary Urine,Clean Catch Pending - Specimen sent to [facility] Discharge Plan Discharge Disposition: Xfer [facility] Discharge Medications: New lacosamide [Vimpat] 100 mg tablet 100 mg PO BID Qty: 60 3RF lacosamide [Vimpat] 100 mg tablet 100 mg PO BID Qty: 60 3RF Continued ropinirole 0.25 mg tablet 0.25 mg PO BID@0800,1700 loperamide [Anti-Diarrheal (loperamide)] 2 mg capsule 2 mg PO .3X A WEEK Rx Instructions: ON WEDNESDAY, AND WEDNESDAY AT BEDTIME Creon 12,000-38,000 -60,000 unit capsule,delayed release(DR/EC) 1 cap PO BIDWM metoprolol succinate 50 mg tablet extended release 24 hr 50 mg PO DAILY ropinirole 0.5 mg tablet 0.5 mg PO .HS Rx Instructions: hs paroxetine HCl 20 mg tablet 20 mg PO DAILY donepezil [Aricept] 10 mg tablet 10 mg PO DAILY zinc 50 mg capsule 50 mg PO DAILY diphenhydramine-acetaminophen [Acetadryl] 25-500 mg tablet 1 tab PO DAILY acetaminophen 500 mg capsule 1,000 mg PO Q4H PRN (Reason: fever or pain) Patient Comments: may take 1-2tabs every 4-6 hours as needed levothyroxine 175 mcg tablet 175 mcg PO .ACB Discontinued divalproex 250 mg tablet,delayed release (DR/EC) 250 mg PO BID Print Language: Estonian Forms: Portal Instructions Follow Up Appointments: Keep appointment with [facility] as scheduled
--- NOTE | 2025-01-16 10:30 | CM.NOTE ---
Rounds made with Dr. Hinson, pt more awake this AM. Pt is able to follow verbal commands. Dr. Hinson will discuss discharge today with pt's daughter.
--- NOTE | 2025-01-16 10:54 | PT.DAILY ---
Physical Therapy Daily Note PT Daily Note/Assess Start: 01/16/25 10:45 Freq: Status: Active Protocol: Document 01/16/25 09:15 BERNICE (Rec: 01/16/25 10:54 [id number]) Physical Therapy Daily Note/Assessment Time In/Time Out Time In 09:15 Time Out 09:30 Subjective Subjective In bed, agrees to therapy, but is hard to keep away and on task this morning. Therapeutic Exercise Time Therapeutic Exercise 10 Minutes (minutes) Therapeutic Exercise 1 Units Therapeutic Exercise Treatment Therapeutic Exercise Supine exercises B LE with AAROM and tactile cues. Treatment Verbal cues to stay on task, hard time following simple commands. Therapeutic Activity Treatment Therapeutic Activity Attempted to sit EOB to get into chair, but difficult Comments following simple commands with 1 person assist this morning. Total Physical Therapy Time Total Therapy 10 Minutes Total Physical 1 Therapy Units Summary Daily Note Summary Patient had difficult time following simple commands and kept falling asleep throughout RX. Attempted to sit EOB and transfer to chair but unable to safely complete with just 1 person assist this morning due to this.
[2025-01-16] MEDS: ENOXAPARIN SODIUM 40 MG/0.4 ML SYRINGE SUBQ (11:17)
[2025-01-16] MEDS: METOPROLOL SUCCINATE 50 MG TAB.ER.24H PO (11:18)
[2025-01-16] MEDS: PAROXETINE HCL 20 MG TABLET PO (11:18)
[2025-01-16] MEDS: LACOSAMIDE 50 MG TABLET 100 MG PO (11:18)
[2025-01-16] MEDS: ROPINIROLE HCL 0.25 MG TABLET PO ×2 (11:18→17:33)
[2025-01-16] MEDS: LOPERAMIDE HCL 1 MG/7.5 ML LIQUID PO (11:21)
--- NOTE | 2025-01-16 13:32 | SWNOTE1 ---
SW spoke to case management and plan is for [facility] from [facility] to come see pt this afternoon and then likely discharge back to [facility] this evening.
--- NOTE | 2025-01-17 14:16 | CM.NOTE ---
Final urine culture given to Dr. Hinson, called in antibiotic and left message with pt's daughter.
--- NOTE | 2025-01-17 14:40 | CM.DCFOLLOWU ---
From [facility]
== END 2025-01-16 18:05 | disposition home or self-care (01) | DRG 101 ==
LOC: ER 10:11 → ICU 16:31 → MS 01-15 07:22 → ICU 01-26 16:34 → MS 01-26 16:34
PROVIDERS: Admitting Provider Internal Medicine; Emergency Provider Emergency Medicine; PCP Family Medicine; Visit Provider Family Medicine
DX: G40.409 Other generalized epilepsy and epileptic syndromes, not intractable, without status epilepticus (principal); N30.00 Acute cystitis without hematuria; E86.0 Dehydration; G30.0 Alzheimer's disease with early onset; F02.C0 Dementia in other diseases classified elsewhere, severe, without behavioral disturbance, psychotic disturbance, mood disturbance, and anxiety; I10 Essential (primary) hypertension; E03.9 Hypothyroidism, unspecified; Z85.850 Personal history of malignant neoplasm of thyroid; Z86.73 Personal history of transient ischemic attack (TIA), and cerebral infarction without residual deficits; Z96.641 Presence of right artificial hip joint; Z79.890 Hormone replacement therapy; Z79.899 Other long term (current) drug therapy; Z66 Do not resuscitate; B96.20 Unspecified Escherichia coli [E. coli] as the cause of diseases classified elsewhere
CPT/HCPCS: 36415; 70450; 70551; 80053; 80164; 81001; 82948; 83735; 84146; 84439; 84481; 85025; 87086; 87150; 87186; 93005; 94761; 95819; 96361; 96365; 96367; 96372; 96375; 97110; 97161; 97530; 99285; G0378; J0360; J0696; J1650; J1953; J2060

== ENCOUNTER 2025-02-15 12:32 | Outpatient (REF) | payer MEDICARE, SELFPAY ==
[2025-02-15 12:50] LABS: Basophils Percent Auto 0.3 % (0.2-2.0); Eosinophils Absolute Auto 0.4 10^3/uL (0.0-0.7); Eosinophils Percent Auto 4.3 % (0.9-7.0); Hematocrit 34.7 % (36.0-48.0); Immature Granulocytes Abs Auto 0.02 10^3/uL (0.00-0.03); Immature Granulocytes Pct Auto 0.2 % (0.0-0.5); Lymphocytes Absolute Auto 1.5 10^3/uL (1.2-3.8); Lymphocytes Percent Auto 16.8 % (20.5-60.0); Mean Corpuscular HGB Conc 31.7 g/dL (29.9-35.2); Mean Corpuscular Hemoglobin 30.8 pg (26.7-34.0); Mean Corpuscular Volume 97.2 fL (81.0-99.0); Mean Platelet Volume 10.9 fL (9.5-13.5); Monocytes Absolute Auto 0.9 10^3/uL (0.3-0.8); Monocytes Percent Auto 10.3 % (1.7-12.0); Neutrophils Absolute Auto 6.2 10^3/uL (1.4-6.5); Neutrophils Percent Auto 68.1 % (43.0-75.0); Platelet Count 277 10^3/uL (150-450); Red Blood Count 3.57 10^6/uL (4.20-5.40); White Blood Count 9.2 10^3/uL (4.0-11.0)
[2025-02-15 14:26] LABS: Alanine Aminotransferase 10 U/L (14-59); Albumin Globulin Ratio 0.6; Albumin Level 2.4 g/dL (3.4-5.0); Alkaline Phosphatase 100 U/L (46-116); Anion Gap 13.3; Aspartate Amino Transferase 12 U/L (15-37); BUN Creatinine Ratio 21.1; Bilirubin Total 0.3 mg/dL (0.2-1.0); Calcium 8.2 mg/dL (8.5-10.1); Carbon Dioxide 27.5 mmol/L (21.0-32.0); Chloride 105 mmol/L (98-107); Estimated GFR (African America 58 (>=60 mL/min/1.73m^2); Estimated GFR (Non-African Ame 48 (>=60 mL/min/1.73m^2); Globulin 3.7 g/dL; Glucose 91 mg/dL (74-106); Potassium 4.8 mmol/L (3.5-5.1); Sodium 141 mmol/L (136-145); Total Protein 6.1 g/dL (6.4-8.2)
== END 2025-02-15 12:33 | disposition home or self-care (01) ==
LOC: LAB 12:32
PROVIDERS: PCP Family Medicine; Visit Provider Family Medicine
DX: R56.9 Unspecified convulsions (principal); Z79.899 Other long term (current) drug therapy; Z51.81 Encounter for therapeutic drug level monitoring; R48.9 Unspecified symbolic dysfunctions; R26.89 Other abnormalities of gait and mobility
CPT/HCPCS: 36415; 80053; 80164; 84436; 84439; 84443; 84481; 85025

== ENCOUNTER 2025-02-15 13:36 | Outpatient (REF) | payer MEDICARE, SELFPAY ==
[2025-02-15 14:35] LABS: Free T3 2.12 pg/mL (2.18-3.98); Thyroid Stimulating Hormone 0.069 uIU/mL (0.358-3.740)
[2025-02-15 14:36] LABS: Free T4 1.59 ng/dL (0.76-1.46)
== END 2025-02-15 13:37 | disposition home or self-care (01) ==
LOC: LAB 13:36
PROVIDERS: PCP Family Medicine; Visit Provider Obstetrics & Gynecology
DX: R48.9 Unspecified symbolic dysfunctions (principal); R26.89 Other abnormalities of gait and mobility
CPT/HCPCS: 36415; 84436; 84439; 84443; 84481

== ENCOUNTER 2025-02-28 14:17 | Outpatient (REF) | payer MEDICARE, SELFPAY ==
[2025-02-28 15:21] LABS: Anion Gap 11.7; BUN Creatinine Ratio 27.2; Calcium 8.8 mg/dL (8.5-10.1); Carbon Dioxide 29.8 mmol/L (21.0-32.0); Chloride 104 mmol/L (98-107); Estimated GFR (African America >60 (>=60 mL/min/1.73m^2); Estimated GFR (Non-African Ame 51 (>=60 mL/min/1.73m^2); Free T3 1.67 pg/mL (2.18-3.98); Glucose 93 mg/dL (74-106); Potassium 4.5 mmol/L (3.5-5.1); Sodium 141 mmol/L (136-145); Thyroid Stimulating Hormone 0.187 uIU/mL (0.358-3.740); Valproic Acid 58.2 ug/mL (50.0-100.0)
== END 2025-02-28 14:18 | disposition home or self-care (01) ==
LOC: LAB 14:17
PROVIDERS: PCP Family Medicine; Visit Provider Family Medicine
DX: R25.1 Tremor, unspecified (principal); G40.89 Other seizures; E03.9 Hypothyroidism, unspecified
CPT/HCPCS: 36415; 80048; 80164; 84436; 84443; 84481